=== PATIENT | female | born 1940 | race Caucasian/White ===

== ENCOUNTER 2018-10-06 08:25 | Inpatient (IN) ==
--- NOTE | 2018-10-06 08:29 | PROVIDER DOCUMENTATION ---
HPI-Neurological Disorder - General Chief Complaint: Altered Mental Status Stated Complaint: AMS Time Seen by Provider: 10/06/18 08:29 Source: patient, EMS Allergies/Adverse Reactions: Patient Allergies Allergy/AdvReac Type Severity Reaction Status Date / Time Sulfa (Sulfonamide Allergy Intermediate NAUSEA Verified 10/06/18 09:00 Antibiotics) [Sulfa(Sulfonamide Antibiotics)] Home Medications: Home Medication List Medication Instructions Recorded Confirmed Last Taken Type Folic Acid 1 mg PO DAILY 11/10/14 07/25/16 01/01/16 History Isosorbide Mononitrate 60 mg PO DAILY 11/10/14 07/25/16 01/01/16 History Allopurinol [Zyloprim] 300 mg PO DAILY 03/10/15 07/25/16 01/01/16 History Donepezil [Aricept] 5 mg PO HS #0 tablet 03/14/15 07/25/16 12/31/15 Rx Duloxetine [Cymbalta] 1 cap PO DAILY 01/01/16 07/25/16 01/01/16 History Metolazone 5 mg PO DIRECTED 01/01/16 07/25/16 12/31/15 History Potassium Chloride 10 meq PO 4XDAY 01/01/16 07/25/16 01/01/16 History SIMVAstatin [Zocor] 40 mg PO QHS 01/01/16 07/25/16 12/31/15 History Amlodipine [Norvasc] 5 mg PO BID #60 tablet 07/04/16 07/25/16 Unknown Rx Carbidopa/Levodopa [Sinemet 25/250] 1 each PO BID #60 tablet 07/04/16 07/25/16 Unknown Rx LISINOpril [Prinivil] 10 mg PO BID #60 tablet 07/04/16 07/25/16 Unknown Rx Labetalol [Trandate] 200 mg PO BID #60 tablet 07/04/16 07/25/16 Unknown Rx Omeprazole [Prilosec] 20 mg PO DAILY@0700 #30 capsule 07/04/16 07/25/16 Unknown Rx Amlodipine [Norvasc] 5 mg PO BID #60 tablet 07/31/16 Unknown Rx LISINOpril [Prinivil] 10 mg PO BID #60 tablet 07/31/16 Unknown Rx Labetalol [Trandate] 200 mg PO BID #60 tablet 07/31/16 Unknown Rx Tramadol [Ultram] 50 mg PO Q12H PRN PRN #30 tablet 07/31/16 Unknown Rx - History of Present Illness-Neuro Nature of Presenting Problem: Family not at bedside at this time, patient is lethargic and oriented to name only, so history is limited and primarily from EMS. Patient has history of UTI and CHF. EMS reports family noted several days of declining mental status and cough. She is on home O2, 3l by PA regularly. Last admitted to hospital in May of last year. Headache Location: reports: other (no headache) Severity: reports: moderate, severe Onset/Duration: reports: 3 days ago Timing: reports: still present, constant, getting worse Context: reports: impaired speech, other (weakness, generalized and confusion) Character of Altered Mental Status: reports: disoriented, confused, trouble concentrating, decreased responsiveness Any recent trauma/injury?: reports: none Character of Deficits: reports: new weakness New weakness or altered sensation location:: reports: general (diffuse) Cognitive Baseline: alert but disoriented Gait Baseline: walks only with assistance Associated Symptoms: reports: short of breath, confusion, weakness Similar Symptoms Previously?: Yes (uti) Recently seen or treated by another doctor?: No Review of Systems - Adult - REVIEW OF SYSTEMS - ADULT ROS:: limited per condition Constitutional: reports: no symptoms reported Eyes: reports: no symptoms reported Ears, Nose, Mouth & Throat: reports: no symptoms reported Cardiovascular: reports: no symptoms reported Respiratory: reports: see HPI, chronic cough, cough, dyspnea on exertion, excessive sputum production Gastrointestinal: reports: no symptoms reported Genitourinary: reports: no symptoms reported Musculoskeletal: reports: no symptoms reported Integumentary: reports: no symptoms reported Neurological: reports: see HPI, other (weakness). denies: ataxia, dizziness/ vertigo, headache/migraines, loss of balance, numbness, paresthesia, tremors Psychiatric: reports: no symptoms reported Endocrine: reports: no symptoms reported Hematologic/Lymphatic: reports: no symptoms reported Allergic/Immunologic: reports: no symptoms reported All Other Systems: Reviewed and Negative Past History - Adult - PAST MEDICAL HISTORY-ADULT Review of Records: reports: Old Records Reviewed, Nursing Assessment Review, Medications Reviewed, Social history reviewed & non-contributory. Major Childhood Illnesses: reports: denies history Cardiovascular: reports: CAD, CHF, HTN, hyperlipidemia Respiratory: reports: asthma, COPD Gastrointestinal: reports: denies history Obstetrical/Gynecological: reports: denies history Genitourinary: reports: kidney disease Musculoskeletal: reports: denies history Neurological: reports: dementia Endocrine/Immune: reports: Diabetes Other Conditions: reports: denies history - PRIOR SURGERIES/PROCEDURES Surgical/Procedure History: reports: hysterectomy, hernia repair, breast ( breast biopsy) - IMMUNIZATION STATUS Flu Vaccine: UTD - FAMILY HISTORY Family History: reviewed, not pertinent - SOCIAL HISTORY Smoking: quit greater than 1 year Substance Use: none/never Alcohol Use Frequency: never Living Situation: family Physical Exam- Neurological - Physical Exam-Neuro Initial Vital Signs Reviewed: Yes (VSSAF) General Appearance: mild distress, lethargic, slow to respond Eye Exam: right eye: other (counjunctival injection and yellow discharge), bilateral eye: normal inspection, PERRL, EOMI HENMT: normocephalic/atraumatic, normal ENT inspection, other (dry mucous membranes) Head Injury: no evidence of injury Neck: non-tender, full range of motion, supple, normal inspection Respiratory: no pleuratic chest pain, no respiratory distress, decreased breath sounds, rales, wheezing, dull on percussion Cardiovascular: normal peripheral pulses, regular rate, rhythm, no edema, diastolic murmur, gallop/S3, extra beats Abdominal Exam: normal bowel sounds, soft, tenderness (mild diffuse) Lymphatic: no adenopathy Extremity: normal range of motion, non-tender, pedal edema (4+) drinking water technician Exam: PERRL, abnormal speech (answers in one word) Coordination/Gait: abnormal gait Motor/Sensory: no motor deficit, no sensory deficit, no pronator drift, weak motor strength RUE, weak motor strength LUE, weak motor strength RLE, weak motor strength LLE Neurologic: drinking water technician II-XII nml as tested, no motor/sensory deficits, motor weakness (diffuse) Integumentary: warm/dry, abrasion(s) (upper chest), other (old bruise right upper outer arm, venous statsis changes bilateral lower legs) Psych/Mental Status: other (oriented to name only) - Glascow Coma Scale Best Eye Response: (3) open to voice Best Verbal Response: (3) inappropriate words Best Motor Response: (4) withdraws to pain Total Glascow Score: 10 Progress - PLAN OF CARE/RESULTS Progress/Plan/Lab Results: Vital Signs - 8 hr 10/06/18 08:30 10/06/18 08:45 Temperature 97.6 F Pulse Rate 81 81 Respiratory Rate 15 20 Blood Pressure 150/83 O2 Sat by Pulse Oximetry 97 92 L 10/06/18 08:55 Influenza Screen - Final Nasopharyngeal Laboratory Results - last 24 hr 10/06/18 10/06/18 10/06/18 08:34 08:36 08:36 WBC 20.25 H RBC 3.56 L Hgb 10.7 L Hct 35.0 L MCV 98.3 MCH 30.1 MCHC 30.6 L RDW Std Deviation 16.1 H Plt Count 282 MPV 10.7 H Immature Gran % (Auto) 2.2 H Neut % (Auto) 84.5 H Lymph % (Auto) 6.8 L Carson % (Auto) 5.4 Eos % (Auto) 0.9 Baso % (Auto) 0.2 Immature Gran # (Auto) 0.45 H Neut # (Auto) 17.09 H Lymph # (Auto) 1.38 Carson # (Auto) 1.10 H Eos # (Auto) 0.19 Baso # (Auto) 0.04 Segmented Neutrophils 80 H Band Neutrophils 8 H Lymphocytes 2 L Monocytes 6 Eosinophils 2 Metamyelocytes 2.0 PT INR PTT (Actin FS) Specimen Type ARTERIAL Sample Site R RADIAL pH 7.14 L* pCO2 50 H pO2 84 HCO3 15.7 L Base Excess -11.7 L Oxyhemoglobin 92.7 L ABG O2 Sat (Calculated) 14.2 L ABG O2 Saturation 95.9 ABG Carboxyhemoglobin 1.80 ABG Methemoglobin 1.5 Rigoberto Test YES A-a O2 Difference 82.0 Total Hemoglobin 10.8 L Lactate 0.50 Liter Flow 3.0 Blood Gas Modality CANNULA FiO2 % 32.0 Sodium 144 Potassium 4.8 Chloride 111 H Carbon Dioxide 18 L Anion Gap 15 BUN 76 H Creatinine 3.2 H Estimated GFR/1.73 m2 14 BUN/Creatinine Ratio 24 Glucose 139 H Calculated Osmolality 312 Calcium 9.9 Magnesium 2.9 H Total Bilirubin 0.31 AST 21 ALT 15 Alkaline Phosphatase 134 H Creatine Kinase 68 Troponin T Total Protein 7.1 Albumin 3.4 L Globulin 3.7 Albumin/Globulin Ratio 0.9 Plasma Lactate Urine Source Urine Color Urine Turbidity Urine pH Ur Specific [place] Urine Protein Ur Glucose (Stick) Ur Ketones (Stick) Urine Blood Urine Nitrite Urine Bilirubin Urobilinogen Dipstick Urine Leukocytes Urine WBC (Auto) Urine RBC (Auto) Urine Bacteria (Auto) 10/06/18 10/06/18 10/06/18 08:36 08:36 08:36 WBC RBC Hgb Hct MCV MCH MCHC RDW Std Deviation Plt Count MPV Immature Gran % (Auto) Neut % (Auto) Lymph % (Auto) Carson % (Auto) Eos % (Auto) Baso % (Auto) Immature Gran # (Auto) Neut # (Auto) Lymph # (Auto) Carson # (Auto) Eos # (Auto) Baso # (Auto) Segmented Neutrophils Band Neutrophils Lymphocytes Monocytes Eosinophils Metamyelocytes PT 15.3 INR 1.12 PTT (Actin FS) 33.2 Specimen Type Sample Site pH pCO2 pO2 HCO3 Base Excess Oxyhemoglobin ABG O2 Sat (Calculated) ABG O2 Saturation ABG Carboxyhemoglobin ABG Methemoglobin Rigoberto Test A-a O2 Difference Total Hemoglobin Lactate Liter Flow Blood Gas Modality FiO2 % Sodium Potassium Chloride Carbon Dioxide Anion Gap BUN Creatinine Estimated GFR/1.73 m2 BUN/Creatinine Ratio Glucose Calculated Osmolality Calcium Magnesium Total Bilirubin AST ALT Alkaline Phosphatase Creatine Kinase Troponin T 0.041 Total Protein Albumin Globulin Albumin/Globulin Ratio Plasma Lactate 0.6 Urine Source Urine Color Urine Turbidity Urine pH Ur Specific [place] Urine Protein Ur Glucose (Stick) Ur Ketones (Stick) Urine Blood Urine Nitrite Urine Bilirubin Urobilinogen Dipstick Urine Leukocytes Urine WBC (Auto) Urine RBC (Auto) Urine Bacteria (Auto) 10/06/18 08:40 WBC RBC Hgb Hct MCV MCH MCHC RDW Std Deviation Plt Count MPV Immature Gran % (Auto) Neut % (Auto) Lymph % (Auto) Carson % (Auto) Eos % (Auto) Baso % (Auto) Immature Gran # (Auto) Neut # (Auto) Lymph # (Auto) Carson # (Auto) Eos # (Auto) Baso # (Auto) Segmented Neutrophils Band Neutrophils Lymphocytes Monocytes Eosinophils Metamyelocytes PT INR PTT (Actin FS) Specimen Type Sample Site pH pCO2 pO2 HCO3 Base Excess Oxyhemoglobin ABG O2 Sat (Calculated) ABG O2 Saturation ABG Carboxyhemoglobin ABG Methemoglobin Rigoberto Test A-a O2 Difference Total Hemoglobin Lactate Liter Flow Blood Gas Modality FiO2 % Sodium Potassium Chloride Carbon Dioxide Anion Gap BUN Creatinine Estimated GFR/1.73 m2 BUN/Creatinine Ratio Glucose Calculated Osmolality Calcium Magnesium Total Bilirubin AST ALT Alkaline Phosphatase Creatine Kinase Troponin T Total Protein Albumin Globulin Albumin/Globulin Ratio Plasma Lactate Urine Source CATH Urine Color YELLOW Urine Turbidity CLEAR Urine pH 6.0 Ur Specific [place] 1.012 Urine Protein 300 A Ur Glucose (Stick) TRACE Ur Ketones (Stick) NEGATIVE Urine Blood TRACE A Urine Nitrite NEGATIVE Urine Bilirubin NEGATIVE Urobilinogen Dipstick NORMAL Urine Leukocytes NEGATIVE Urine WBC (Auto) <10 Urine RBC (Auto) <10 Urine Bacteria (Auto) NEGATIVE Orders Category Date Time Status Cardiac Monitoring DIRECTED Care 10/06/18 08:34 Active [place] Insertion ORDERED Care 10/06/18 08:35 Active IV Insertion ORDERED Care 10/06/18 08:34 Completed Notify Physician As Ordered Care 10/06/18 08:34 Active CHEST-1 VIEW [RAD] Stat Exams 10/06/18 08:34 Completed ABG [RESP] Routine Lab 10/06/18 08:34 Completed BLOOD CULTURE [BLDCUL] Stat Lab 10/06/18 09:10 Received CBC WITH DIFF [HEME] Stat Lab 10/06/18 08:36 Completed CK PROFILE [SP CHEM] Stat Lab 10/06/18 08:36 Completed COMPREHENSIVE METABOLIC PANEL [CHEM] Stat Lab 10/06/18 08:36 Completed INFLUENZA SCREEN A/B Stat Lab 10/06/18 08:55 Completed LACTATE, PLASMA [CHEM] Lab 10/06/18 11:45 Uncollected LACTATE, PLASMA [CHEM] Lab 10/06/18 14:45 Uncollected LACTATE, PLASMA [CHEM] Q3H Lab 10/06/18 08:36 Completed MAGNESIUM [CHEM] Stat Lab 10/06/18 08:36 Completed PRO B-NATRIURETIC PEPTIDE Stat Lab 10/06/18 08:36 Received PROTIME WITH INR [COAG] Stat Lab 10/06/18 08:36 Completed PTT [COAG] Stat Lab 10/06/18 08:36 Completed TROPONIN T Stat Lab 10/06/18 08:36 Completed URINALYSIS W/POSS RFLX CULT [URINALYSIS] Stat Lab 10/06/18 08:40 Results 0.9% Sodium Chloride Inj [Ns] 1,000 ml Med 10/06/18 08:33 Discontinued IV 999 mls/hr Albuterol 2.5MG/Ipratrop 0.5MG [Duoneb (A & A)] Med 10/06/18 08:35 Discontinued 3 ml INH NOW ONE Azithromycin 500 mg/Ns [Zithromax 500 mg/Ns] Med 10/06/18 09:36 Active 500 mg in 250 ml IV NOW CefTRIAXONE [Rocephin] 2 gm Med 10/06/18 08:33 Discontinued 0.9% Sodium Chloride Inj [Ns] 50 ml IV NOW Furosemide [Lasix] Med 10/06/18 08:35 Discontinued 20 mg IV NOW ONE Furosemide [Lasix] Med 10/06/18 09:28 Discontinued 60 mg IV NOW ONE Sodium Bicarbonate 8.4% Med 10/06/18 09:28 Discontinued 50 meq IV NOW ONE Aerosol Treatments Routine Oth 10/06/18 08:36 Completed Aerosol Treatments Stat Oth 10/06/18 08:36 Completed Oxygen Device Stat Ot 10/06/18 08:34 Completed Result Diagrams: 10/06/18 08:36 10/06/18 08:36 - REASSESSMENT Reassessment #1 Time Reassessed: 09:37 Status: improving (Given duoneb treatments, does not meet criteria for sepsis at this time. Givne 1 L of IVF and 80mg lasix. Given rocephin/zithromax for likely CAP) - XRAY 1 XRAY Study: Chest Impression: Abnormal, See EMR Report (EXAM: CHEST-1 VIEW HISTORY: chf, cough TECHNIQUE: Portable chest COMPARISON: 07/25/2016 FINDINGS: Poor inspiratory effort. There is pulmonary edema. The heart is borderline mildly prominent. Questionable trace pleural fluid. IMPRESSION: Pulmonary edema Electronically signed by Aly Pandey 10/06/2018 9:12 AM 10/06/18911 Interpreting Physician: Aly Pandey MD Dictated Date/Time: 10/06/18911 cc: Immanuel Leahy MD; Chiquis Rosales MD) XRAY Interpretation: I believe there is a RLL infiltrate - CONSULTS/PCP/HOSPITALIST Notification #1 *Consult/PCP/Hospitalist*: STARLA Macedo Time Discussed: 09:40 (admit to [facility]) Consult Disposition: Will see in ED Departure - Departure Date of Disposition Decision: 10/06/18 Time of Disposition Decision: 09:40 DIAGNOSIS: Acute kidney injury superimposed on chronic kidney disease, Metabolic acidosis with respiratory acidosis Altered mental status, unspecified Qualifiers: Altered mental status type: somnolence Qualified Code(s): R40.0 - Somnolence Pneumonia Qualifiers: Pneumonia type: due to unspecified organism Laterality: right Lung location: lower lobe of lung Qualified Code(s): J18.1 - Lobar pneumonia, unspecified organism Acute exacerbation of CHF (congestive heart failure) Qualifiers: Heart failure type: combined systolic and diastolic Qualified Code(s): I50.43 - Acute on chronic combined systolic (congestive) and diastolic (congestive) heart failure Disposition: ADMITTED INPATIENT 09 Certified Medical Emergency: Emergent Condition: Fair Referrals and Follow-Ups: Chiquis Rosales MD [Primary Care Provider] - - Critical Care Note This patient required my direct & personal management of CC.: Yes Total Time (mins): 45 Critical Care Statement: This patient required my direct personal management to treat or rule out processes, the absence of which, could potentiallly result in sudden, clinically significant life or limb threatening deterioration. Attestation - Physician/ LO Attestation Patient care was provided by Advanced Practice Provider:: No The physician spent face to face time with patient:: Yes Advanced Practice Provider documentation review:: Supervising physician onsite and consulted in the evaluation and care of this patient. The physician did have a face to face encounter with the patient. - NIH Stroke Scale NIH Type: Initial Evaluation Level of Consciousness: 2-Stuporous, requires repeat stimulation to attend LOC Questions (ask month and age): 2-Both Incorrect LOC Commands (ask to open & close eyes;make a fist, let go): 2-Both Incorrect Best Gaze (horizontal eye movement): 0-Normal Visual (use finger movement, counting or visual threat): 0-No Visual Loss Facial Palsy (show teeth or raise eyebrows & close eyes tght: 0-Symmetrical Movement Motor Function-left arm: 2-Some Effort Against Hudgins Motor Function-right arm: 2-Some Effort Against Hudgins Motor Function-left le-Some Effort Against H[place]gins Motor Function-right le-Some Effort Against Hudgins Limb Ataxia([id number]-[id number], or heel to mcneill): 0-Untestable (too weak) Sensory(pin prick to face,arms,trunk,legs-compare side/side): 0-No Ataxia Best Language(name item/read sentence.Ex-Down to Earth): 0-No Aphasia Dysarthria(Pt read words or say words Ex.Mama,Tip-Top,Thanks: 2-Near Unintelligible Extinction and Inattention: 0-Normal NIH Total Score: 16 Modified [place] Score Criteria: 5-severe disability Stroke tPA Guidelines - Inclusion Criteria for IV tPA 18 years old or older: Yes Ischemic stroke with measurable deficit: No Onset <3 hours ago *OR* 3-4.5 hours ago: No
[2018-10-06] MEDS ORDERED: NS 1,000 ML IV ONE (08:33)
[2018-10-06] MEDS ORDERED: ROCEPHIN 2 GM in NS 50 ML IV ONE (08:33)
[2018-10-06] MEDS ORDERED: LASIX IV ONE ×2 (08:35→09:28)
[2018-10-06] MEDS ORDERED: DUONEB (A & A) INH ONE (08:35)
[2018-10-06 08:54] LABS: ALLEN TEST YES; BE -11.7 mmoll (-3.0-3.0); BLOOD TYPE ARTERIAL; HCO3-(ACT) 15.7 mmoll (20.0-26.0); METHB 1.5 % (0.0-1.5); O2(CT) 14.2 mL/dL (15.0-23.0); O2HB 92.7 % (95.0-99.0); PCO2(98.6) 50 mmHg (35-45); PO2(98.6) 84 mmHg (60-100); SAMPLE BLOOD; SAO2 95.9 % (95.0-100.0); THB 10.8 g/dL (11.5-17.4)
[2018-10-06 08:56] LABS: MODALITY CANNULA
[2018-10-06 08:58] LABS: pH(98.6) 7.14 (7.35-7.45)
[2018-10-06 09:02] LABS: URINE SOURCE CATH
[2018-10-06 09:05] LABS: BILIRUBIN URINE NEGATIVE (NEGATIVE); BLOOD URINE TRACE (NEGATIVE); COLOR YELLOW; GLUCOSE URINE TRACE mg/dL (NEGATIVE); KETONE URINE NEGATIVE (NEGATIVE); LEUKOCYTES URINE NEGATIVE (NEGATIVE); NITRITE URINE NEGATIVE (NEGATIVE); PROTEIN URINE 300 mg/dL (NEGATIVE); SP GRAVITY URINE 1.012; TURBIDITY URINE CLEAR (CLEAR); UROBILINOGEN URINE NORMAL (NORMAL)
[2018-10-06 09:06] LABS: URINE BACTERIA NEGATIVE /HPF; URINE RBC <10 /HPF (<10); URINE WBC <10 /HPF (<10)
[2018-10-06 09:14] LABS: INR 1.12; PROTIME 15.3 Seconds (11.0-16.0); PTT 33.2 Seconds (22.3-41.8)
--- NOTE | 2018-10-06 09:15 | Diag Imaging Result Doc PS360 ---
EXAM: CHEST-1 VIEW HISTORY: chf, cough TECHNIQUE: Portable chest COMPARISON: 07/25/2016 FINDINGS: Poor inspiratory effort. There is pulmonary edema. The heart is borderline mildly prominent. Questionable trace pleural fluid. IMPRESSION: Pulmonary edema Electronically signed by Aly Pandey 10/06/2018 9:12 AM
[2018-10-06 09:24] LABS: ALB/GLOB RATIO 0.9; ALBUMIN 3.4 g/dL (3.5-5.0); CALCIUM 9.9 mg/dL (8.8-10.2); CREATININE 3.2 mg/dL (0.5-0.9); MAGNESIUM 2.9 mg/dL (1.5-2.7); POTASSIUM 4.8 mmol/L (3.5-5.1); TOTAL BILIRUBIN 0.31 mg/dL (0.20-1.00); TOTAL PROTEIN 7.1 g/dL (6.3-8.3)
[2018-10-06] MEDS ORDERED: SODIUM BICARBONATE 8.4% IV ONE (09:28)
[2018-10-06 09:29] LABS: BASO# 0.04 X1000 (0.0-0.2); BASO% 0.2 % (0.0-0.8); EOS# 0.19 X1000 (0.0-0.7); EOS% 0.9 % (0.0-10.0); HEMOGLOBIN 10.7 g/dL (12.0-16.0); IMM GRAN# 0.45 X1000 (0.0-0.04); IMM GRAN% 2.2 % (0.0-0.5); LYMPH# 1.38 X1000 (1.2-3.4); LYMPH% 6.8 % (20.5-51.1); MCH 30.1 PG (27-31); MCHC 30.6 g/dL (33-37); MCV 98.3 FL (81-99); MONO% 5.4 % (1.7-9.3); MPV 10.7 FL (7.4-10.4); NEUT# 17.09 X1000 (1.4-6.5); NEUT% 84.5 % (42.2-75.2); PLT 282 X1000 (130-400); RBC 3.56 XMIL (4.2-5.4); RDW 16.1 % (11.5-14.5); WBC 20.25 X1000 (4.8-10.8)
[2018-10-06 09:31] LABS: BANDS 8 % (0-1); EOS 2 % (1-10); LYMPHS 2 % (21-51); MONO 6 % (1-9); SEGS 80 % (42-75)
[2018-10-06] MEDS ORDERED: ZITHROMAX 500 MG/NS 500 MG/250 ML IVPB IV ONE (09:36)
[2018-10-06 09:55] LABS: UR EPITHELIAL CELLS <10 /HPF (<10)
--- NOTE | 2018-10-06 10:03 | ED EKG INTERP ---
EKG Interpretation - EKG Time of EKG reading by physician:: 08:35 EKG Read and Signed by:: Immanuel Leahy EKG Interpretation (*Must complete 3 of following elements*): Abnormal Rate: 76 Rhythm: afib [place]: normal QRS: RBB ST Wave: non-specific ST changes Attestation - Physician/ LO Attestation Patient care was provided by Advanced Practice Provider:: No The physician spent face to face time with patient:: Yes Advanced Practice Provider documentation review:: Supervising physician onsite and consulted in the evaluation and care of this patient. The physician did have a face to face encounter with the patient.
[2018-10-06] MEDS ORDERED: DUONEB (A & A) INH PRN (10:53)
--- NOTE | 2018-10-06 11:21 | EKG Report ---
Test Performed on : 10/06/2018 08:33:23 AM Test Reason : ED. No order in [place] Blood Pressure : / mmHG Vent. Rate : 076 BPM Atrial Rate : 068 BPM P-R Int : 000 ms QRS Dur : 134 ms QT Int : 420 ms P-R-T Axes : 000 070 -34 degrees QTc Int : 472 ms Atrial fibrillation. with premature ventricular or aberrantly conducted complexes. Right bundle branch block Abnormal ECG When compared with ECG of 30-JUL-2016 19:15, Right bundle branch block is now present Borderline criteria for Inferior infarct are no longer present Unconfirmed Result
[2018-10-06 11:26] LABS: UR CREAT RANDOM 68.6 mg/dL (11-20)
[2018-10-06 11:28] LABS: UR AMPHETAMINES QUAL NONE DETECTED (NONE DETECT); UR BARBITUATES QUAL NONE DETECTED (NONE DETECT); UR BENZODIAZEPIN QUAL NONE DETECTED (NONE DETECT); UR CANNABINOIDS QUAL NONE DETECTED (NONE DETECT); UR COCAINE QUAL NONE DETECTED (NONE DETECT); UR METHADONE QUAL NONE DETECTED (NONE DETECT); UR OPIATES QUAL PRESUMPTIVE POSITIVE (NONE DETECT); UR OXYCODONE QUAL NONE DETECTED (NONE DETECT); UR PCP QUAL NONE DETECTED (NONE DETECT)
[2018-10-06] MEDS: ZOSYN 2.25 GM in NS 50 ML IV SCH ×3 (11:35→22:28)
[2018-10-06] MEDS: PROTONIX IV SCH (11:35)
[2018-10-06] MEDS: DUONEB (A & A) INH SCH ×4 (11:45→23:02)
[2018-10-06] MEDS ORDERED: APRESOLINE IV PRN (11:57)
[2018-10-06 12:06] LABS: HEMOGLOBIN A1C 5.7 % (4.8-6.0)
[2018-10-06 12:09] LABS: ACETAMINOPHEN 1.7 ug/mL (10-30); SALICYLATES < 3.00 mg/dL (3-10)
[2018-10-06 12:16] LABS: FREE T4 0.96 ng/dL (0.93-1.70); TSH 1.45 uIUmL (0.27-4.20)
--- NOTE | 2018-10-06 12:17 | HISTORY AND PHYSICAL ---
PRIMARY CARE PHYSICIAN: Dr. Chiquis Rosales CHIEF COMPLAINT: Altered mental status. HISTORY OF PRESENT ILLNESS: Ms. Lo is a 78-year-old female with multiple medical problems, who has been seen by our service multiple times over the years. She has a history of CKD 4, diabetes mellitus, chronic atrial fibrillation, who presents today from home with altered mental status. There is no one at the bedside, and the patient is essentially somnolent and unable to really give us any type of history. On exam, Ms. Lo is indeed encephalopathic; however, she does open her eyes to verbal stimulus but is disoriented. She does state that she came to the ER because she was on the floor for too long; however, the timing and duration of this is unknown. Workup in the ER revealed a white count of 20.25 with anemia. An ABG done revealed a mixed metabolic and respiratory acidosis with pH of 7.14. Chemistry shows worsening renal failure, acidosis and a ProBNP of 11,150. Chest x-ray did reveal cardiomegaly. She was given 80 mg of Lasix, an amp of sodium bicarb and antibiotics by the ER. Given the above , she will need admission for further treatment and evaluation. PAST MEDICAL HISTORY: 1. Admissions in the past for altered mental status, ultimately felt to be toxic encephalopathy, possibly secondary to medications. 2. CKD 4. 3. Chronic atrial fibrillation. 4. Hypertension. 5. Diabetes mellitus type 2 requiring insulin. 6. Hyperlipidemia. 7. Chronic pain, on narcotic therapy. Please note that review of her medications at the bedside show a bottle of Han[place] that filled on 09/27/2018, 90 pills were dispensed, and there are only 7 in the bottle. 8. Hypertension. 9. History of myelodysplastic syndrome. 10.Morbid obesity. 11.Chronic anemia. 12.COPD. PAST SURGICAL HISTORY: Hysterectomy, hernia repair and breast surgery. FAMILY HISTORY: Noncontributory. SOCIAL HISTORY: Per chart review, there is no report of tobacco or alcohol use. There is question of opiate abuse. She is but currently no family at the bedside. ALLERGIES: Sulfa. HOME MEDICATIONS: Not reconciled at this time, currently pending. REVIEW OF SYSTEMS: Unable to obtain. PHYSICAL EXAMINATION: VITAL SIGNS: Blood pressure is 139/90, heart rate 83, respiratory rate 26, O2 saturation is 100% on 3 L nasal cannula. Temperature is 97.6. GENERAL: This is a disheveled, chronically ill appearing, morbidly obese 78-year -old female lying in hospital bed, lethargic, bordering on obtunded. NEUROLOGICAL: She opens her eyes to verbal stimulus. She is able to state that she is in [facility] and her name, but otherwise she is disoriented. She follows commands without any overt focal deficits. HEENT: Pupils are pinpoint bilaterally. Oral mucosa is slightly dry. NECK: Trachea is midline. There is no JVD. CHEST: Coarse bilaterally. CARDIOVASCULAR: Irregular rate and rhythm. S1 and S2 noted. GASTROINTESTINAL: Soft, nondistended. Bowel sounds are hypoactive. EXTREMITIES: Trace edema. Chronic venostasis changes noted. Pulses are diminished, 1+ bilaterally. DIAGNOSTIC DATA: Chest x-ray shows poor inspiration with cardiomegaly and pulmonary edema. EKG shows atrial fibrillation, rate controlled, right bundle branch block. WBC is 20.25, hemoglobin 10.7, hematocrit 35, platelet count is 282. INR is 1.12. ABG on nasal cannula showed pH of 7.14, CO2 is 50, O2 is 84, bicarbonate 15.7. Sodium is 144, potassium 4.8, chloride 111, CO2 is 18, anion gap 15, BUN is 76, creatinine 3.2, glucose 139, calcium 9.9, magnesium 2.1. AST is 21, ALT is 50, total bilirubin is 0.31, alkaline phosphatase 134. CK is 68. Troponin is 0.041. ProBNP is 11,150. Protein is 7.1, albumin 3.4. UA is negative for UTI. Toxicology is positive for opiates. ASSESSMENT AND PLAN: 1. Toxic/metabolic encephalopathy. Likely similar to previous admissions for the same. In light of her possible opiate abuse/overdose, this could certainly represent toxic encephalopathy secondary to Hanover usage. We are going to check a head CT, and we are also going to put her on BiPAP for respiratory acidosis. We will also check thyroid function and continue treatment for possible pneumonia. 2. Acute kidney injury on chronic kidney disease. She is not hypotensive or overtly volume depleted on physical exam. More than likely, this represents slight worsening of her chronic disease process. She was given 80 mg of Lasix intravenously in the ER, so we will need to watch her renal status closely. She has a triple acid base disturbance: respiratory, anion and non-anion gap acidosis. She was given an amp of bicarb in the ER and we are putting her on bipap for resp acidosis. We will recheck an abg in a few hours and consult Dr. Woods as well. Urine lytes also pending. 3. Respiratory Failure: Likely due to a combination of respiratory depression from opiate usage and/or pulmonary edema/pna. Will continue with bipap, add broad spec abx and breathing treatments. She has been given a fairly large dose of lasix in the ER as well. Will order a thorax CT, trend cardiac enzymes, order an echo, follow blood gases,and consult pulmonary. 4. Diabetes mellitus. We will check hemoglobin A1c, add pattern sugars and sliding scale insulin. 5. Chronic Afib: Rate controlled, awaiting medication reconciliation to see if she is on anticoagulation. She meets criteria for AC but is likely a poor candidate as there is a question of dementia and ability to adhere to therapy. DVT prophylaxis with SCDs for now, she will need anticoagulant once head CT is deemed negative. Further recommendations to follow. Dictated by STARLA Danielle for Jacinto Maguire MD Patient seen and examined by me face to face, all the laboratory, vitals signs and images were reviewed, presented to the emergency department with mental status changes, at the moment of my evaluation nobody was at the bedside, she is lethargic, has some respiratory distress, I see in the medications list from home that she takes Hanover schedule three times a day, I will stop that since I think is to much, and this is basically the cause of this mental status changes, she has bilateral rhonchi, decreased breath sounds on my exam, I agree with the [facility] DRILLER's assessment and plan, Jacinto Aquino MD. cc: STARLA Danielle MD [facility]ITAL[facility]ala[facility]
[2018-10-06 12:24] LABS: ACETONE SERUM NEGATIVE (NEGATIVE)
--- NOTE | 2018-10-06 13:31 | Diag Imaging Result Doc PS360 ---
CT HEAD W/O CONTRAST - 10/06/2018 INDICATION: ams COMPARISON: 07/25/2016 FINDINGS: The ventricles and sulci are normal in size and contour. No intracranial mass or hemorrhage. The skull is intact. The sinuses mastoids and middle ears are clear. IMPRESSION: Negative exam. This exam was performed using automated exposure control, adjustment of mA or kV according to patient size, and/or use of iterative reconstruction technique Electronically signed by Jean Moreland 10/06/2018 1:28 PM
--- NOTE | 2018-10-06 13:34 | Diag Imaging Result Doc PS360 ---
CT THORAX W/O CONTRAST - 10/06/2018 INDICATION: dyspnea COMPARISON: Chest x-ray from earlier today FINDINGS: There is significant calcified vascular disease of the aortic arch and great vessels. This involves the coronary arteries as well, and the mitral valve annulus. Heart size is borderline enlarged. No pericardial effusion. There is a small right and trace left pleural effusion. There is bilateral dependent consolidation of the lungs mainly in the lower lobes, left greater than right. Lung volumes are severely low. There is a left adrenal nodule measuring 1.5 cm. There is a left renal cyst that appears benign. These are both stable from the abdomen pelvis CT of 06/20/2013 and considered benign. There are moderate degenerative changes of the spine. No acute or suspicious bony lesion. IMPRESSION: 1. Severely low lung volumes. 2. Cardiomegaly. Vascular disease. 3. Bilateral lower lobe consolidation left greater than right. 4. Small right and trace left pleural effusions. This exam was performed using automated exposure control, adjustment of mA or kV according to patient size, and/or use of iterative reconstruction technique Electronically signed by Jean Moreland 10/06/2018 1:32 PM
--- NOTE | 2018-10-06 15:42 | NEPHROLOGY CONSULTATION ---
DATE: 10/06/2018 REASON FOR ADMISSION: Altered mental status. REASON FOR CONSULTATION: Acute kidney injury in the context of chronic kidney disease stage 3B-4. CONSULTING PHYSICIAN: Jacinto Maguire MD, STARLA Ballesteros, HISTORY OF PRESENT ILLNESS: Ms. Lo is a 78-year-old white female who is known to our outpatient services for chronic kidney disease stage 4. The patient's baseline creatinine, last seen in our office was 2.43 on 07/16/2018. At that time, she was unable to collect a 24-hour urine due to chronic incontinence. She has a history of acidosis and a chronic anemia. Subsequently, she has chronic atrial fibrillation, who had presented with altered mental status and increased weakness for 24 hours. Her said he tried to get her up yesterday, and she was able to stand and transferred from the bedside, but today she was too somnolent and he could not get her out of bed. She was encephalopathic in the emergency room. She opened her eyes to verbal stimuli, though she was disoriented and nonverbal. Workup in the ER indicated a white count of 20.25. She was anemic. ABGs revealed mixed metabolic and respiratory acidosis with a pH of 7.14, CO2 of 18. She has a mild anion gap acidosis of 15. Her acetone is negative. The patient was subsequently given 80 mg of Lasix and an amp of sodium bicarbonate, started on Rocephin in the emergency room, was subsequently transferred to the floor for further monitoring and evaluation. She is unable to report any review of systems, though her states that she has had a decreased appetite. She was able to drink some. No nausea or vomiting, but just not wanting to the eat. No recent fever or chills. No chest pain. No complaints of increased work of breathing. Chronic lower extremity swelling. PAST MEDICAL HISTORY: Recent admissions for altered mental status with toxic encephalopathy secondary to possible medications, chronic kidney disease stage 4 with baseline creatinine noted in our office of 2.43 in June 2018, chronic atrial fibrillation, hypertension, diabetes mellitus type 2 requiring insulin dependence, hyperlipidemia, hypertension, history of myelodysplastic syndrome, morbid obesity, chronic anemia, COPD, chronic pain with narcotic therapy. PAST SURGICAL HISTORY: Hysterectomy, hernia repair, and breast surgery. FAMILY HISTORY: Noncontributory to acute kidney injury or end-stage. SOCIAL HISTORY: She is . She lives with her spouse. No report of tobacco or alcohol use. Positive for [place]. ALLERGIES: Listed as sulfa. HOME MEDICATIONS: Have yet to be reconciled. Previous medications are folic acid, isosorbide mononitrate, Zyloprim, Cymbalta, Zocor, potassium chloride, [place], Apresoline, Namenda, Reglan, Zantac, stool softener, Humalog Quick Pen, furosemide, Inderal, Levemir Flex Touch, Norvasc, Aricept, Prinivil and Prilosec. REVIEW OF SYSTEMS: The review of systems x10 is best obtained per at the bedside and per review of chart. VITAL SIGNS: Most recent vital signs, temperature 97 degrees, blood pressure 162/63, heart rate 78, respirations 14. She has had 0 recorded input; she has had 1050 output to Hamilton catheter after 80 mg of Lasix this a.m. LABORATORY DATA: Sodium 144, potassium 4.8, chloride 111, CO2 of 18, BUN 76, creatinine 3.2, glucose 139. Her anion gap is 15, her calcium is 9.9, magnesium 2.9, albumin 3.4. White count 20.25, hemoglobin 10.7, hematocrit 35, platelet count 282,000. ABGs, pH 7.14, CO2 of 50, PO2 of 84, bicarbonate 15.7, lactate of 0.5 on 3 liters. Acetone was negative. She has an elevated BNP; this was 11,150. The patient had a head CT upon admission indicating negative exam for acute disease. Chest CT on admission shows severe low lung volume, cardiomegaly, vascular disease; bilateral lower lobe consolidation, left greater than right; small right and trace left pleural effusions. Chest x-ray on admission indicates pulmonary edema. PHYSICAL EXAMINATION: General: This is a 78-year-old white female, resting quietly in bed. She is arousable, opens her eyes to verbal stimuli, though she is nonverbal. HEENT : Normocephalic, atraumatic. Conjunctivae are pale pink. She has JOANNE. Mucous membranes are dry. Neck: Supple. Trachea midline. Unable to determine JVD secondary to the patient's body habitus. Cardiovascular: Irregular irregular rate and rhythm. S1 and S2 are noted. Unable to detect murmur or gallop. Lungs: Have coarse breath sounds bilaterally. She is on room air. Poor inspiratory effort. Abdomen: Large, obese, nontender. Positive bowel sounds present. Genitourinary: Not inspected. The patient has a Hamilton catheter that is currently in place. Extremities: She has trace bilateral edema. Pulses are palpable. She has dry scaliness noted to her bilateral lower extremities. Her left leg is slightly larger than her right. Neurological: As above. ASSESSMENT AND PLAN: 1. Acute kidney injury on chronic kidney disease stage 4. Patient's baseline creatinine is 2.43. Her BUN is 76 with a creatinine of 3.2 today. She did have urine electrolytes indicating a FENa score of 0.52%. Secondary to her pulmonary edema on her chest x-ray, she has received Lasix 80 mg this morning. We will hold on intravenous fluid resuscitation and evaluate her labs in the morning. 2. Toxic metabolic encephalopathy. This may be related to her elevated creatinine level or possibly secondary to her [place] usage. 3. Acid-base balance. The patient has respiratory anion gap, non-anion gap acidosis with metabolic acidosis present. She has received 1 amp of sodium bicarbonate, negative acetone. 4. Respiratory failure. This may be complicated secondary to opiate usage and respiratory depression. She remains currently on room air, though they are putting oxygen on her. She has a positive BNP. She has received Lasix as indicated. 5. Chronic atrial fibrillation. The patient is on anticoagulation. 6. Deep vein thrombosis prophylaxis and sequential compression devices per primary care. I would like to thank you for allowing us to follow with this patient. Dictated by STARLA Agee for Jack Woods MD Face to face encounter, data reviewed, discussed with Abbi Comer on 10/06/18. I agree with the above assessment and plan of care. cc: STARLA Agee MD [facility]
[2018-10-06] MEDS: LEVAQUIN 750 MG/D5W 750 MG/150 ML IVPB IV SCH (16:00)
[2018-10-06] MEDS: HUMULIN R SUBQ SCH ×2 (16:00→21:17)
[2018-10-06 17:10] LABS: ALLEN TEST YES; BE -8.9 mmoll (-3.0-3.0); BLOOD TYPE ARTERIAL; HCO3-(ACT) 17.8 mmoll (20.0-26.0); METHB 1.4 % (0.0-1.5); O2(CT) 16.9 mL/dL (15.0-23.0); O2HB 91.8 % (95.0-99.0); PCO2(98.6) 44 mmHg (35-45); PO2(98.6) 71 mmHg (60-100); SAMPLE BLOOD; SAO2 94.4 % (95.0-100.0); THB 13.1 g/dL (11.5-17.4); pH(98.6) 7.23 (7.35-7.45)
[2018-10-06 17:12] LABS: MODALITY CANNULA
--- NOTE | 2018-10-06 17:21 | HISTORY AND PHYSICAL ---
HISTORY AND PHYSICAL ADDENDUM: Patient seen and examined by me face to face. All the laboratory images and vital signs were reviewed. This patient does have multiple medical problems. She has been admitted before due to mental status changes. Her is at the bedside at this moment. As per the , she had a cold last week around that made her weak, and she is getting weaker to the point that she cannot stand up from bed and she has been confused. I am not quite sure if she has been taking more pain medication than usual. She has been on [place] a few times per day. We did an x- ray that showed pulmonary edema and then we did also a CT scan that showed cardiomegaly, with vascular disease, bilateral lower lobe consolidation, and the left side is greater than the right side and some pleural effusion. Upon admission, she received 80 mg of Lasix in the emergency department. I placed a consult for Pulmonary Department and Nephrology Department which already evaluated the patient. I put her on broad-spectrum antibiotics with Zosyn and I will add levofloxacin to her medications due to her lower lobe consolidations/pneumonia. This is likely related to aspiration pneumonia due to mental status changes. She does have an acute kidney injury on chronic kidney disease. Like I mentioned before, nephrology Department on board. Also, this patient has chronic atrial fibrillation. Her rate is controlled. I will continue with anticoagulation. I discussed the case with the patient and the which is at the bedside. I told them that this patient is quite sick and we will see how she responds to treatment in the next 24 hours. We also discussed her DNR status and she has decided to be full code. I will start this patient on a diet but I will give her some ice chips first to see if she tolerates. On my physical exam, she does have bilateral lung crackles. She does have an umbilical hernia, which is not painful and she is responding to my questions. She is able to recognize family members at the bedside. She is oriented, but sleepy. I agree with the nurse practitioner's assessment and plan. cc: Jacinto Maguire MD
[2018-10-06] MEDS ORDERED: NORCO-5 PO PRN (18:09)
[2018-10-06] MEDS: ULTRAM PO PRN ×2 (18:16→23:32)
--- NOTE | 2018-10-06 18:19 | ECHO REPORT ---
ORDER DATE: 10/06/2018 INDICATION: A 78-year-old female with pulmonary edema, coronary heart disease, CHF, and hypertension. M-MODE MEASUREMENTS: Left ventricle end diastole: 4.5. Left ventricle end systole: 2.9. Posterior wall: 1.0. Interventricular septum: 1.3. Left atrium: 4.7. Aortic root: 2.3. SUMMARY OF 2-DIMENSIONAL IMAGIN. Left ventricular function appears to be preserved. Ejection fraction is estimated at 60% to 65%. Mild degree of concentric LVH. The left atrium is significantly enlarged. The patient is in atrial fibrillation. 2. The mitral annulus is densely calcified. Color flow mapping of the mitral valve indicates a mild degree of regurgitation. 3. The aortic valve shows sclerosis of the cusp. There is no evidence of aortic regurgitation. Maximum gradient across the outflow tract of left ventricle is 32 mmHg. Mean gradient is 15 mmHg. That may suggest a mild degree of aortic stenosis. 4. The pulmonic valve looks grossly normal. Color flow mapping indicates a mild degree of regurgitation. 5. Tricuspid valve shows moderate degree of regurgitation. 6. Pulmonary systolic pressure is estimated at 65 mmHg. There is a small left to right shunt across the fossa ovale consistent with patent foramen ovale. 7. There is no pericardial effusion, mass, and no thrombus. SUMMARY: This study shows 1. Preserved left ventricular systolic function with ejection fraction of 65%. 2. Significantly enlarged left atrium with presence of a patent foramen ovale with a tiny left to right shunt. 3. Dense calcification of the mitral annulus. 4. Sclerosis/mild stenosis of aortic valve. Maximum gradient 32 mmHg. Mean gradient 15 mmHg. 5. Moderate to significant pulmonary hypertension estimated at 65 mmHg. Clinical correlation is recommended. cc: MD Isaias Tsang CRNP
--- NOTE | 2018-10-06 18:45 | CONSULTATION ---
DATE OF CONSULTATION: 10/06/2018 REQUESTING PROVIDER: STARLA Danielle REASON FOR CONSULTATION: Respiratory failure. HISTORY OF PRESENT ILLNESS: This is a 78-year-old female with a significant medical history including COPD, congestive heart failure, coronary artery disease, gastroesophageal reflux disease, chronic kidney disease, atrial fibrillation, hypertension, diabetes, hyperlipidemia, myelodysplastic syndrome, and early dementia. She presented to the ER via EMS this morning with altered mental status. She has been admitted to the medical floor with encephalopathy, acute kidney injury on chronic kidney disease, respiratory failure, mixed metabolic and respiratory acidosis with pH of 7.14. At the time of my examination, patient is resting comfortably in bed with eyes closed. She is easy to be awakened. She is able to answer most of my questions although she has confusion at times. She is drowsy. The patient's is at bedside. He answers part of my questions. The patient has productive cough with yellow sputum for weeks. She also has dyspnea on exertion. She has no fever or chills, wheezing, nausea, or chest pain. PAST MEDICAL HISTORY: 1. COPD. 2. Congestive heart failure, diastolic. 3. Coronary artery disease. 4. Gastroesophageal reflux disease. 5. Chronic kidney disease, stage 4. 6. Chronic atrial fibrillation. 7. Hypertension. 8. Insulin-dependent diabetes mellitus type 2 with diabetic neuropathy. 9. Obesity. 10. Hyperlipidemia. 11. Myelodysplastic syndrome. 12. Osteoarthritis. 13. Early dementia. 14. Chronic pain, on narcotic therapy. 15. Gout. 16. Chronic anemia. 17. History of DVT. 18. Stasis dermatitis. PAST SURGICAL HISTORY: 1. Bladder surgery. 2. Hysterectomy. 3. Hernia repair. 4. Breast surgery. SOCIAL HISTORY: The patient is and lives with her . They have 2 small dogs as pets. She used to smoke about 1 pack per day, but not sure how long she smoked. She quit 20 years ago. She has no history of alcohol or illicit drug use. FAMILY HISTORY: Positive for cancer and heart problems. ALLERGIES: Sulfa. REVIEW OF SYSTEMS: A 10 point review of systems was conducted, and the pertinent is listed within the HPI, otherwise not contributory. PHYSICAL EXAMINATION: Vital Signs: Temperature 97.0 degrees, blood pressure 197/103, pulse 83, respiratory rate 26, oxygen saturation 99% on nasal cannula at 3. General: Chronically ill- appearing, morbidly obese, sleeping quietly in bed, no acute distress noted. She is easy to be woken up. She is still drowsy. Patient's is at the bedside. HEENT: Atraumatic. Trachea midline. Mucosa pink and slightly dry. Respiratory: Lung expansion is equal bilaterally. Diminished breathing sounds with mild inspiratory crackles noted. Cardiovascular: Regular rate and rhythm without murmur. Gastrointestinal: Bowel sounds normoactive in all 4 quadrants. Soft, nontender, nondistended. Extremities: Bilateral lower extremities dry, scaly, discolored, and slightly cold to touch. Left lower extremity edema, 1+. Right lower extremity edema, trace. Dorsalis pedis 1+ bilaterally. Neurologic: Oriented x2, but drowsy. Speech fluent. Confusion noted at times. IMAGING DATA: Chest x-ray reveals pulmonary edema with questionable chest pleural effusion. LABORATORY DATA: White blood cell 20.25, hemoglobin 10.7, hematocrit 95.0, platelet 282,000. Sodium 144, potassium 4.8, chloride 111, carbon dioxide 18, BUN 76, creatinine 3.2, glucose 149. ProBNP 11,150. ABG: A pH 7.14, pCO2 of 50, PO2 of 84, HCO3 of 15.7, base excess -11.7, and oxyhemoglobin 92.7. ASSESSMENT: This is a 78-year-old female with a significant medical history including chronic obstructive pulmonary disease (COPD), congestive heart failure, coronary artery disease, gastroesophageal reflux disease, chronic kidney disease, atrial fibrillation, hypertension, diabetes, hyperlipidemia, myelodysplastic syndrome, and early dementia. She has been admitted to the medical floor with encephalopathy, acute kidney injury on chronic kidney disease, respiratory failure with mixed metabolic and respiratory acidosis. 1. Acute hypoxemic hypokalemic respiratory failure. 2. Toxic metabolic encephalopathy. 3. Acute kidney injury on chronic kidney disease. 4. Mixed metabolic and respiratory acidosis. 5. Chronic obstructive pulmonary disease (COPD). PLAN: 1. Continue supplemental oxygen and start BiPAP. 2. Continue antibiotic and bronchodilators. 3. Follow with ABGs, chest x-ray, CBC, and CMP. 4. Follow up with blood culture and sputum culture. 5. Dr. Woods is on board. 6. Continue GI and DVT prophylaxis. Thank you for the courtesy of this consultation. Dictated by STARLA Bravo for Monster Gregorio MD cc: STARLA Bravo MD [facility]
[2018-10-06] MEDS: APRESOLINE PO SCH (21:09)
[2018-10-06] MEDS: NAMENDA PO SCH (21:09)
[2018-10-06] MEDS: COLACE PO SCH (21:09)
[2018-10-06] MEDS: ARICEPT PO SCH (21:09)
[2018-10-07] MEDS: DUONEB (A & A) INH SCH ×6 (03:31→23:14)
[2018-10-07] MEDS: ZOSYN 2.25 GM in NS 50 ML IV SCH ×4 (05:04→21:31)
[2018-10-07 05:12] LABS: ALLEN TEST YES; BE -7.4 mmoll (-3.0-3.0); BLOOD TYPE ARTERIAL; HCO3-(ACT) 19.1 mmoll (20.0-26.0); METHB 1.1 % (0.0-1.5); O2(CT) 13.7 mL/dL (15.0-23.0); O2HB 94.7 % (95.0-99.0); PCO2(98.6) 43 mmHg (35-45); PO2(98.6) 102 mmHg (60-100); SAMPLE BLOOD; SAO2 96.4 % (95.0-100.0); THB 10.2 g/dL (11.5-17.4); pH(98.6) 7.26 (7.35-7.45)
[2018-10-07 05:13] LABS: MODALITY BI PAP
[2018-10-07] MEDS: HUMULIN R SUBQ SCH ×4 (05:59→21:30)
[2018-10-07 07:44] LABS: BASO# 0.02 X1000 (0.0-0.2); BASO% 0.2 % (0.0-0.8); EOS# 0.13 X1000 (0.0-0.7); HEMATOCRIT 32.7 % (37.0-47.0); HEMOGLOBIN 10.1 g/dL (12.0-16.0); IMM GRAN# 0.19 X1000 (0.0-0.04); IMM GRAN% 1.4 % (0.0-0.5); LYMPH# 1.14 X1000 (1.2-3.4); LYMPH% 8.6 % (20.5-51.1); MCH 30.1 PG (27-31); MCHC 30.9 g/dL (33-37); MCV 97.3 FL (81-99); MONO# 0.65 X1000 (0.11-0.59); MONO% 4.9 % (1.7-9.3); MPV 10.3 FL (7.4-10.4); NEUT# 11.12 X1000 (1.4-6.5); NEUT% 83.9 % (42.2-75.2); PLT 230 X1000 (130-400); RBC 3.36 XMIL (4.2-5.4); RDW 15.5 % (11.5-14.5); WBC 13.25 X1000 (4.8-10.8)
[2018-10-07 08:02] LABS: HEMOGLOBIN A1C 5.5 % (4.8-6.0)
[2018-10-07 08:14] LABS: ALB/GLOB RATIO 0.8; ALBUMIN 2.9 g/dL (3.5-5.0); CALCIUM 9.1 mg/dL (8.8-10.2); CREATININE 2.9 mg/dL (0.5-0.9); POTASSIUM 3.7 mmol/L (3.5-5.1); TOTAL BILIRUBIN 0.27 mg/dL (0.20-1.00); TOTAL PROTEIN 6.7 g/dL (6.3-8.3)
[2018-10-07 08:33] LABS: FERRITIN 1805 ng/mL (13-150)
[2018-10-07] MEDS ORDERED: LASIX IV ONE (08:37)
[2018-10-07] MEDS: COLACE PO SCH ×2 (08:40→20:32)
[2018-10-07] MEDS: ULTRAM PO PRN ×3 (08:40→20:32)
[2018-10-07] MEDS: APRESOLINE PO SCH ×2 (08:40→20:32)
[2018-10-07] MEDS: NAMENDA PO SCH ×2 (08:40→20:33)
[2018-10-07] MEDS: NORVASC PO SCH (08:41)
[2018-10-07] MEDS: SODIUM CHLORIDE 0.9% INJ SCH (10:40)
[2018-10-07] MEDS: PROTONIX IV SCH (10:40)
--- NOTE | 2018-10-07 14:02 | NEPHROLOGY PROGRESS NOTE ---
DATE: 10/07/2018 DATE AND TIME: Date seen 10/07/2018; time seen is 727. SUBJECTIVE: Ms. Lo is resting in bed. She is awake and alert. She states that she is having some pain, just overall discomfort. OBJECTIVE: Her most recent vital signs: Temperature 98, blood pressure 155/61 , heart rate 87, respirations 16. She is on O2 at 3 L nasal cannula. She had been on 50% BiPAP during the night. She has had 300 in; 2750 out. LABORATORY DATA: Sodium 146, potassium 3.7, chloride 110, CO2 20, BUN 67, creatinine 2.9, glucose 152, anion gap is 16, calcium of 9.1, albumin of 2.9. White count 13.25, hemoglobin 10.1, hematocrit 32.7, platelet count 230. The patient has a total iron percent saturation of 30, iron of 45, TIBC 150, ferritin of 1805. B12 greater than 2000, folate greater than 40. PHYSICAL EXAMINATION: General: This is a 78-year-old white female resting quietly in bed. She has no acute distress, though she aches all over. She appears chronically ill. HEENT: Normocephalic, atraumatic. Conjunctiva is pale pink. She has JOANNE. Mucous membranes are dry. Neck: Supple. Trachea midline. No evidence of JVD. Cardiovascular: She is regular rate and rhythm. S1, S2 noted. Lungs: She has coarse breath sounds, a congested cough though her lungs are clear to the bases. She remains on O2 support. Abdomen: Large, obese, soft, nontender. Positive bowel sounds. Genitourinary: Not inspected. She has had adequate urine out documented. Extremities: Has 2+ lower extremity edema, with her left leg slightly larger than her right. Neurologic: As above. ASSESSMENT AND PLAN: 1. Acute on chronic kidney disease stage 4. Adequate urine out. No indications for further intervention. Her FENa score was low, though she is noted to have been in pulmonary edema. Continue pulmonary toilet/ BIPAP, etc. Conservative care regarding renal disease. rg 2. Toxic metabolic encephalopathy. Patient has not received any narcotics in the last 24 hours since her admission. Her neurological status has improved. 3. Electrolytes and acid-base balance and anemia. These are all acceptable. 4. Chronic atrial fibrillation, followed by Cardiology. I would like to thank you for allowing us to follow with this patient. Dictated by STARLA Agee for Jack Woods MD Face to face encounter, data reviewed, discussed with Abbi Comer on 10/07/18. I agree with the above assessment and plan of care. cc: STARLA Agee MD [facility]
[2018-10-07] MEDS: LEVAQUIN 750 MG/D5W 750 MG/150 ML IVPB IV SCH (14:24)
--- NOTE | 2018-10-07 16:07 | PROGRESS NOTE ---
DATE: 10/07/2018 SUBJECTIVE: Patient seems to be more awake today, but she is still somnolent. I do believe she has been taking too much pain medication at home. I had a conversation with the which is at the bedside about this, and he believes that probably it is too much for her. Today we talked again about her condition. She is still remarkably sick but seems to be a little bit more stable compared with yesterday. They have decided to change the resuscitation status to DNR level 1. OBJECTIVE: Vital Signs: Temperature 98 degrees, pulse 79, respiratory rate 20, blood pressure 173/74, oxygen saturation 96 on nasal cannula. HEENT: Head normocephalic, no trauma. PERRLA. Neck: Supple. No JVD. No masses. Central trachea. Chest: Decreased breath sounds globally with some crepitus at the bases. Abdomen: Soft, nontender, nondistended. No hepatosplenomegaly. Extremities: Trace edema. No clubbing. No cyanosis. Chronic venous stasis changes. Neurological: The patient is sleepy, but arousable. She is oriented times 2. She is able to recognize family members at the bedside. She is following commands. She is answering most of my questions. LABORATORY DATA: WBC 13.2, hemoglobin 10.1, hematocrit 32.7, platelets 230,000. Sodium 146, potassium 3.7, chloride 110, bicarbonate 20, BUN 67, creatinine 2.9, glucose 152, calcium 9.1. ASSESSMENT AND PLAN: 1. Encephalopathy. It looks like she has been getting the same problem on previous admissions. In light of her possible opiate abuse/overdose, probably this is related to a toxic encephalopathy secondary to Gomer treatment. I have discussed with the patient and the who is at the bedside that I do believe it is too much Gomer for this patient. She has been getting the treatment 3 times a day. At this moment, this patient is getting better. We will continue with the same management. 2. Acute on chronic kidney disease. She is not hypotensive. She received some Lasix upon admission, and today she has received Lasix as well because she has some pulmonary edema and respiratory failure. Nephrology Department on board. 3. Hypercapnic respiratory failure. This patient has bilateral lower lobe pneumonia. We will continue with antibiotics. She has been placed on Zosyn and levofloxacin. Likely this is secondary to aspiration pneumonia. 4. Aspiration pneumonia. As above. 5. Type 2 diabetes. Continue with same management. 6. Chronic atrial fibrillation, rate controlled. Continue with her medications and anticoagulation. 7. Likely diastolic heart failure. This patient has been having some pulmonary edema. At home, she is on Lasix. She has been getting Lasix during this hospitalization. Her BNP was elevated at 11,150. I will repeated tomorrow again. 8. History of chronic obstructive pulmonary disease. Not in exacerbation at this moment. 9. Chronic pain on narcotic therapy. I do believe this is the cause of her problems. I do believe she is taking too much pain medication. 10. History of myelodysplastic syndrome. Aware. 11. Resuscitation status. This patient is DNR. cc: Jacinto Maguire MD
[2018-10-07] MEDS ORDERED: NORCO-5 PO ONE (16:35)
[2018-10-07] MEDS: ARICEPT PO SCH (20:32)
[2018-10-08] MEDS: ULTRAM PO PRN ×4 (01:46→20:59)
[2018-10-08] MEDS: DUONEB (A & A) INH SCH ×6 (04:07→23:18)
[2018-10-08] MEDS: ZOSYN 2.25 GM in NS 50 ML IV SCH ×4 (04:14→21:09)
[2018-10-08 05:17] LABS: ALLEN TEST YES; BE -1.8 mmoll (-3.0-3.0); BLOOD TYPE ARTERIAL; HCO3-(ACT) 23.4 mmoll (20.0-26.0); METHB 0.8 % (0.0-1.5); O2(CT) 13.7 mL/dL (15.0-23.0); O2HB 90.1 % (95.0-99.0); PCO2(98.6) 39 mmHg (35-45); PO2(98.6) 58 mmHg (60-100); SAMPLE BLOOD; SAO2 92.4 % (95.0-100.0); THB 10.8 g/dL (11.5-17.4); pH(98.6) 7.38 (7.35-7.45)
[2018-10-08 05:19] LABS: MODALITY CANNULA
[2018-10-08] MEDS: HUMULIN R SUBQ SCH ×4 (06:23→21:09)
[2018-10-08] MEDS ORDERED: CALMOSEPTINE OINTMENT TOP PRN (07:51)
[2018-10-08] MEDS: CYMBALTA PO SCH (08:10)
[2018-10-08] MEDS: APRESOLINE PO SCH ×3 (08:10→23:44)
[2018-10-08] MEDS: INDERAL LA PO SCH (08:10)
[2018-10-08] MEDS: NAMENDA PO SCH ×2 (08:10→20:59)
[2018-10-08] MEDS: NORVASC PO SCH (08:10)
[2018-10-08] MEDS: COLACE PO SCH ×2 (08:10→20:58)
[2018-10-08 08:16] LABS: BASO# 0.03 X1000 (0.0-0.2); BASO% 0.2 % (0.0-0.8); EOS% 1.6 % (0.0-10.0); HEMATOCRIT 35.4 % (37.0-47.0); HEMOGLOBIN 11.3 g/dL (12.0-16.0); IMM GRAN# 0.18 X1000 (0.0-0.04); IMM GRAN% 1.5 % (0.0-0.5); LYMPH# 1.22 X1000 (1.2-3.4); LYMPH% 10.1 % (20.5-51.1); MCH 30.1 PG (27-31); MCHC 31.9 g/dL (33-37); MCV 94.4 FL (81-99); MONO# 0.86 X1000 (0.11-0.59); MONO% 7.1 % (1.7-9.3); MPV 10.6 FL (7.4-10.4); NEUT# 9.64 X1000 (1.4-6.5); NEUT% 79.5 % (42.2-75.2); PLT 236 X1000 (130-400); RBC 3.75 XMIL (4.2-5.4); WBC 12.13 X1000 (4.8-10.8)
[2018-10-08] MEDS: ZYLOPRIM PO SCH (08:18)
[2018-10-08] MEDS: ISMO PO SCH (08:18)
[2018-10-08] MEDS: FOLIC ACID PO SCH (08:18)
[2018-10-08 08:39] LABS: ALB/GLOB RATIO 0.7; ALBUMIN 2.7 g/dL (3.5-5.0); CALCIUM 9.8 mg/dL (8.8-10.2); CREATININE 2.3 mg/dL (0.5-0.9); TOTAL BILIRUBIN 0.42 mg/dL (0.20-1.00); TOTAL PROTEIN 6.6 g/dL (6.3-8.3)
[2018-10-08 08:54] LABS: POTASSIUM 2.5 mmol/L (3.5-5.1)
[2018-10-08] MEDS: KLOR-CON PO SCH ×2 (10:21→20:59)
[2018-10-08] MEDS: PROTONIX IV SCH ×2 (10:22→20:59)
[2018-10-08] MEDS: SODIUM CHLORIDE 0.9% INJ SCH (10:22)
--- NOTE | 2018-10-08 11:33 | PROGRESS NOTE ---
DATE: 10/08/2018 SUBJECTIVE: Patient is definitely more awake and oriented today. She is still complaining of pain, but I will continue with the same management. I will try to avoid as much we can narcotics. She is still DNR level 1. We will continue with the same management. OBJECTIVE: Vital Signs: Temperature 97.5 degrees, pulse 107, respiratory rate 15, blood pressure 186/89, oxygen saturation 92% percent on 3 L of nasal cannula. HEENT: Head normocephalic. No trauma. PERRLA. Neck: Supple. No JVD. No masses. Central trachea. Chest: Decreased breath sounds globally with some crackles and rhonchi at the bases. Abdomen: Soft, nontender, nondistended. No hepatosplenomegaly. Extremities: Trace edema. No clubbing. No cyanosis. Chronic venous stasis changes. Neurological examination: The patient is awake, alert. She is oriented x2. She is able to recognize family members at the bedside. She is following commands. She is answering most of my questions. LABORATORY: WBC 12.1, hemoglobin 11.3, hematocrit 35.4, platelets 236. Sodium 143, potassium 2.5, chloride 104, bicarbonate 25. BUN 50, creatinine 2.3, glucose 152, calcium 9.8. ProBNP 9343, albumin 2.7. ASSESSMENT AND PLAN: 1. Encephalopathy. She is definitely much better today compared with the previous days. I do believe she has been having the same problems on previous admissions. In light of her possible opiate overdose/abuse, probably this is related to a toxic encephalopathy secondary to narcotics. I have discussed with the patient and the who is at the bedside, and I do believe she has been taking too much Dustin daily. She has been getting the treatment 3 times a day. For now, I will keep her on tramadol and I will monitor. 2. Acute on chronic kidney disease getting better. Continue with the same management. Nephrology on board. 3. Hypertension. I have increased the dose of hydralazine, and I put this patient back on isosorbide mononitrate, but the blood pressure is still uncontrolled. 4. Type 2 diabetes. Continue with same management. 5. Hypercapnic respiratory failure. This patient also has bilateral lower lobe pneumonia, which actually could be related to aspiration pneumonia. She has been placed on Zosyn and levofloxacin. Continue with the same management. 6. Likely diastolic heart failure. This patient has some pulmonary edema. At home, she is on Lasix and she has been getting Lasix during this hospitalization. Basic metabolic panel was elevated at 11,000 and now is around 9000. 7. History of chronic obstructive pulmonary disease, not in exacerbation. 8. Chronic pain on narcotic therapy. Like I mentioned before, I think this is a cause of her problems. I do believe she is taking too much pain medication. 9. History of myelodysplastic syndrome. Aware. 10. Resuscitation status: Patient is do not resuscitate level 1. 11. Hypertension, which is uncontrolled. I added isosorbide mononitrate and I increased the dose of hydralazine. 12. Chronic atrial fibrillation. Rate controlled. Continue with the medications and anticoagulation. cc: Jacinto Maguire MD
[2018-10-08] MEDS: LEVAQUIN 750 MG/D5W 750 MG/150 ML IVPB IV SCH (14:40)
--- NOTE | 2018-10-08 14:47 | NEPHROLOGY PROGRESS NOTE ---
DATE: 10/08/2018 DATE AND TIME: Date seen 10/08/2018, time seen 0638. SUBJECTIVE: Ms. Lo is resting quietly in bed. Her head of the bed is elevated. She has no complaints. States her head does hurt on occasions with movement. OBJECTIVE: Vital Signs: Her most recent vital signs: Her last temperature 97.3, blood pressure 186/89, heart rate 93, respirations are 18. She is on 3 L nasal cannula. Last recorded saturation 93%. She has had 830 in, she has had 3900 out to Hamilton catheter. LABS: Sodium is 143, potassium is 2.5, chloride is 104, CO2 25, BUN 50, creatinine 2.3, glucose 152. She has an anion gap of 14. Her calcium is 9.8, albumin of 2.7. Her BNP is 9343. Her white count 12.13, hemoglobin 11.3, hematocrit 35.4, with a platelet count of 236,000. ABGs this a.m.: pH 7.38, CO2 39, PO2 58, bicarb 23.4. This is on 2 L nasal cannula. PHYSICAL EXAMINATION: General: This is a 78-year-old white female resting quietly in bed. Head of the bed is slightly elevated. She is in no acute distress. Skin: Warm and dry. HEENT: Normocephalic, atraumatic. Conjunctiva is pale pink. She has JOANNE. Mucous membranes dry. Neck: Supple. Trachea midline. No JVD. Cardiovascular: She is regular rate and rhythm with distant heart sounds. No murmur or gallop appreciated. Lungs: Clear to auscultation bilaterally, though she does have coarse breath sounds when speaking. She remains on home O2. She is on O2 at this time. Abdomen: Large, distended. Positive bowel sounds. Genitourinary: Not inspected. Hamilton catheter is in place. Extremities: Have 1+ lower extremity edema. Integumentary presents with bruising to the right upper and lower extremities. She also has complaints of some right foot discomfort, more slightly swollen than the left. Neurologic: Alert and oriented x 3. ASSESSMENT AND PLAN: 1. Acute on chronic kidney disease stage 4. Adequate urine output. No indications for intervention. Again, her FENa score had been low. She does have pulmonary edema. It has been suggested that she have conservative care regarding her renal disease. 2. Toxic metabolic encephalopathy. The patient is much improved today. 3. Electrolytes, acid-base balance and anemia. These all remain fairly stable. Followed by the primary care. 4. Chronic atrial fibrillation, followed by Cardiology. I would like to thank you for allowing us to follow with this patient. Dictated by STARLA Agee for Jack Woods MD Face to face encounter, data reviewed, discussed with Abbi Comer on 10/08/18. I agree with the above assessment and plan of care. cc: STARLA Agee MD [facility]
[2018-10-08] MEDS ORDERED: NORCO-5 PO ONE (16:55)
[2018-10-08] MEDS: ARICEPT PO SCH (20:59)
[2018-10-09] MEDS: DUONEB (A & A) INH SCH ×7 (03:45→23:26)
[2018-10-09] MEDS: ZOSYN 2.25 GM in NS 50 ML IV SCH ×4 (03:47→21:44)
[2018-10-09 05:09] LABS: ALLEN TEST YES; BLOOD TYPE ARTERIAL; HCO3-(ACT) 23.3 mmoll (20.0-26.0); METHB 1.4 % (0.0-1.5); O2(CT) 15.1 mL/dL (15.0-23.0); O2HB 92.4 % (95.0-99.0); PCO2(98.6) 40 mmHg (35-45); PO2(98.6) 73 mmHg (60-100); SAMPLE BLOOD; SAO2 94.7 % (95.0-100.0); THB 11.6 g/dL (11.5-17.4); pH(98.6) 7.37 (7.35-7.45)
[2018-10-09 05:11] LABS: MODALITY CANNULA
[2018-10-09] MEDS: HUMULIN R SUBQ SCH ×4 (06:06→20:49)
--- NOTE | 2018-10-09 07:17 | Diag Imaging Result Doc PS360 ---
EXAM: CHEST-PORTABLE 10/09/2018 HISTORY: dyspnea TECHNIQUE: AP portable at 0547 COMMENT: There is alveolar opacity in both lower lobes. The heart size is enlarged. Compared to 10/06/2018 there is slight worsening in the basilar opacities. IMPRESSION: Worsened pulmonary edema plus minus pneumonia. Electronically signed by Luis Bhatia 10/09/2018 7:14 AM
[2018-10-09 07:24] LABS: BASO# 0.02 X1000 (0.0-0.2); BASO% 0.2 % (0.0-0.8); EOS# 0.15 X1000 (0.0-0.7); EOS% 1.2 % (0.0-10.0); HEMATOCRIT 32.8 % (37.0-47.0); HEMOGLOBIN 10.7 g/dL (12.0-16.0); IMM GRAN# 0.14 X1000 (0.0-0.04); IMM GRAN% 1.1 % (0.0-0.5); LYMPH# 1.29 X1000 (1.2-3.4); LYMPH% 10.1 % (20.5-51.1); MCHC 32.6 g/dL (33-37); MCV 95.1 FL (81-99); MONO% 6.3 % (1.7-9.3); MPV 10.6 FL (7.4-10.4); NEUT# 10.35 X1000 (1.4-6.5); NEUT% 81.1 % (42.2-75.2); PLT 216 X1000 (130-400); RBC 3.45 XMIL (4.2-5.4); RDW 14.9 % (11.5-14.5); WBC 12.75 X1000 (4.8-10.8)
[2018-10-09 07:52] LABS: ALB/GLOB RATIO 0.8; ALBUMIN 2.8 g/dL (3.5-5.0); CALCIUM 9.3 mg/dL (8.8-10.2); CREATININE 2.2 mg/dL (0.5-0.9); POTASSIUM 2.9 mmol/L (3.5-5.1); TOTAL BILIRUBIN 0.4 mg/dL (0.20-1.00); TOTAL PROTEIN 6.5 g/dL (6.3-8.3)
[2018-10-09] MEDS ORDERED: LASIX IV ONE (08:27)
[2018-10-09] MEDS: NAMENDA PO SCH ×2 (08:56→20:31)
[2018-10-09] MEDS: CYMBALTA PO SCH (08:56)
[2018-10-09] MEDS: ISMO PO SCH (08:56)
[2018-10-09] MEDS: FOLIC ACID PO SCH (08:56)
[2018-10-09] MEDS: COLACE PO SCH ×2 (08:56→20:31)
[2018-10-09] MEDS: ULTRAM PO PRN ×2 (08:56→20:31)
[2018-10-09] MEDS: NORVASC PO SCH (08:57)
[2018-10-09] MEDS: ZYLOPRIM PO SCH (08:57)
[2018-10-09] MEDS: INDERAL LA PO SCH (08:57)
[2018-10-09] MEDS: KLOR-CON PO SCH ×2 (09:03→20:31)
[2018-10-09] MEDS: PROTONIX IV SCH ×2 (09:11→21:44)
[2018-10-09] MEDS: SODIUM CHLORIDE 0.9% INJ SCH ×2 (09:12→20:36)
[2018-10-09] MEDS: APRESOLINE PO SCH ×2 (09:18→17:04)
[2018-10-09] MEDS: BAZA ANTIFUNGAL CREAM TOP SCH ×2 (09:42→20:49)
[2018-10-09] MEDS: PHENERGAN IV PRN ×2 (12:48→20:32)
--- NOTE | 2018-10-09 12:49 | NEPHROLOGY PROGRESS NOTE ---
DATE: 10/09/2018 SUBJECTIVE: She is smiling and denies new symptoms. She states she feels better. Still coughing with sputum production. OBJECTIVE: Vital Signs: Blood pressure 158/75, heart rate 92, respiration 18, afebrile. Intake 400 mL. Output 1.8 L. General: Chronically ill-appearing woman in no distress. Skin: Warm and dry, thin with multiple ecchymoses. HEENT: Conjunctivae are pink. Oropharynx is dry. Neck: Neck veins are not visible. Heart: Regular. Lungs: Equal with a few scattered crackles and rhonchi. Abdomen: Soft nontender, obese. Bowel sounds present. Extremities: 1+ edema. No clubbing or cyanosis. IMPRESSION: Acute kidney injury overlying chronic kidney disease. Her baseline creatinine is approximately 2 and she is approaching at baseline. Good urine output. She does have significant hypokalemia. This has been addressed by the primary team. cc: Jack Woods MD
--- NOTE | 2018-10-09 16:18 | PROGRESS NOTE ---
DATE: 10/09/2018 SUBJECTIVE: This patient is awake and she is oriented, she seems a little bit more slow compared with yesterday, family member at the bedside, we will try to avoid as much as we can narcotics. She is DNR level 1. She is complaining of nausea. She has been getting nausea treatment but as per the patient, Phenergan is the only medication that works. OBJECTIVE: Vital Signs: Temperature 98.1 degrees, pulse 78, respiratory rate 18, blood pressure 155/88, oxygen saturation 100% on 2 L of nasal cannula. HEENT: Head normocephalic. No trauma. PERRLA. Neck: Supple. No JVD. No masses. Central trachea. Chest: Decreased breath sounds globally with some crackles and rhonchi at the bases. Abdomen: Soft, nontender, nondistended. No hepatosplenomegaly. Extremities: No edema, no clubbing, no cyanosis. Chronic venous stasis changes at the lower extremities. Neurological: This patient is more awake. She is following commands. She is oriented x2. She is able to recognize her family member at the bedside. She is answering most of my questions. LABORATORY: WBC 12.7, hemoglobin 10.7, hematocrit 32.8, platelets 216,000, sodium 142, potassium 2.9, chloride 104, bicarbonate 22, BUN 47, creatinine 2.2, glucose 155, calcium 9.3, magnesium 1.7. AST 15, ALT 10, alkaline phosphatase 106, albumin 2.8. ASSESSMENT AND PLAN: 1. Encephalopathy. She is much better compared with admission. I do believe she has been having some problems. She has been having the same problem on previous admission. In light of her possible opiate overdose/abuse probably this is related to a toxic encephalopathy secondary to narcotics, I have discussed the case with the patient and the who is at the bedside. I do believe she has been taking too much pain medication on a daily basis, 3 times a day. 2. Acute on chronic kidney disease, this is getting better close to her baseline. Continue to monitor. 3. Nausea, no vomiting. Continue with the same treatment. 4. Hypertension. Blood pressure is a little bit better controlled. Will continue to monitor, the dose of hydralazine has been increased already and I put this patient back on most of her medications. 5. Type 2 diabetes. Continue with same management. 6. Hypercapnic respiratory failure, this patient also has bilateral lower lobe pneumonia which actually could be related to aspiration pneumonia. She has been placed on Zosyn and levofloxacin. Continue with same management. She is getting better. 7. Likely diastolic heart failure. This patient has also some pulmonary edema. I have stopped the fluids and I will give her a dose of Lasix. 8. History of chronic obstructive pulmonary disease, not in exacerbation. 9. Chronic pain on narcotic therapy, like I mentioned before I think this is the cause of her problems. I do believe she is taking too much pain medication. Continue with tramadol as needed. 10. History of myelodysplastic syndrome, aware. 11. Resuscitation status, patient is do not resuscitate level 1. 12. Chronic atrial fibrillation, rate controlled. Continue with the same medications and anticoagulation. cc: Jacinto Maguire MD
[2018-10-09] MEDS: LEVAQUIN 750 MG/D5W 750 MG/150 ML IVPB IV SCH (17:01)
[2018-10-09] MEDS: ARICEPT PO SCH (20:31)
[2018-10-09] MEDS: SODIUM CHLORIDE 0.9% INJ PRN (20:36)
--- NOTE | 2018-10-09 23:58 | PULMONOLOGY PROGRESS NOTE ---
DATE: 10/09/2018 SUBJECTIVE: The patient is awake and alert. She has delayed responses. It is not clear if she is oriented. She has no increased work of breathing. She has limited appetite. She has had some nausea this afternoon. OBJECTIVE: Vital Signs: Blood pressure 151/73, heart rate 80, respiratory rate 18, oxygen saturation 100% on 2 L per nasal cannula. HEENT: Pupils are equal. Oropharynx appears clear. Neck: Is supple. Chest: Reveals kyphosis with decreased breath sounds and crackles in both lung bases. Cardiac: S1-S2. Abdomen: Soft. Extremities: Reveal trace edema. IMPRESSION: 1. A 78-year-old with aspiration pneumonia. 2. Pleural effusions with diastolic heart failure. 3. Acute hypoxemic respiratory failure. 4. Encephalopathy. 5. Acute on chronic kidney disease. 6. Myelodysplastic syndrome. 7. Atrial fibrillation. DISCUSSION: By reading the chart, she appears to have some clinical improvement. RECOMMENDATIONS: 1. Reflux precautions with nausea given her aspiration pneumonia. 2. Continue oxygen for hypoxemic respiratory failure. 3. Continue antibiotic regimen. 4. Continue bronchial hygiene. 5. The patient's overall status is guarded. End of life discussions have been addressed. cc: Vic Holguin MD
[2018-10-10] MEDS: PHENERGAN IV PRN (00:38)
[2018-10-10] MEDS: SODIUM CHLORIDE 0.9% INJ PRN (00:38)
[2018-10-10] MEDS: APRESOLINE PO SCH ×3 (00:38→15:22)
[2018-10-10] MEDS: DUONEB (A & A) INH SCH ×6 (03:55→22:33)
[2018-10-10] MEDS: ZOSYN 2.25 GM in NS 50 ML IV SCH ×3 (04:10→18:47)
[2018-10-10] MEDS: HUMULIN R SUBQ SCH ×4 (06:16→21:08)
[2018-10-10 07:29] LABS: BASO# 0.02 X1000 (0.0-0.2); BASO% 0.2 % (0.0-0.8); EOS# 0.28 X1000 (0.0-0.7); EOS% 2.2 % (0.0-10.0); HEMATOCRIT 35.1 % (37.0-47.0); HEMOGLOBIN 11.3 g/dL (12.0-16.0); IMM GRAN# 0.13 X1000 (0.0-0.04); LYMPH# 1.58 X1000 (1.2-3.4); LYMPH% 12.4 % (20.5-51.1); MCH 30.6 PG (27-31); MCHC 32.2 g/dL (33-37); MCV 95.1 FL (81-99); MONO# 1.05 X1000 (0.11-0.59); MONO% 8.2 % (1.7-9.3); MPV 10.5 FL (7.4-10.4); NEUT# 9.67 X1000 (1.4-6.5); PLT 222 X1000 (130-400); RBC 3.69 XMIL (4.2-5.4); RDW 14.9 % (11.5-14.5); WBC 12.73 X1000 (4.8-10.8)
[2018-10-10 08:03] LABS: ALB/GLOB RATIO 0.8; CALCIUM 9.6 mg/dL (8.8-10.2); CREATININE 2.3 mg/dL (0.5-0.9); POTASSIUM 3.4 mmol/L (3.5-5.1); TOTAL BILIRUBIN 0.57 mg/dL (0.20-1.00); TOTAL PROTEIN 6.6 g/dL (6.3-8.3)
[2018-10-10] MEDS ORDERED: KLOR-CON PO ONE (09:43)
[2018-10-10] MEDS: ISMO PO SCH (10:10)
[2018-10-10] MEDS: INDERAL LA PO SCH (10:10)
[2018-10-10] MEDS: CYMBALTA PO SCH (10:11)
[2018-10-10] MEDS: BAZA ANTIFUNGAL CREAM TOP SCH (10:11)
[2018-10-10] MEDS: COLACE PO SCH ×2 (10:11→21:12)
[2018-10-10] MEDS: PROTONIX IV SCH ×2 (10:11→21:16)
[2018-10-10] MEDS: ZYLOPRIM PO SCH (10:11)
[2018-10-10] MEDS: NAMENDA PO SCH ×2 (10:11→21:12)
[2018-10-10] MEDS: NORVASC PO SCH (10:11)
[2018-10-10] MEDS: FOLIC ACID PO SCH (10:19)
[2018-10-10] MEDS: LEVAQUIN 750 MG/D5W 750 MG/150 ML IVPB IV SCH (15:22)
[2018-10-10] MEDS: ULTRAM PO PRN ×2 (15:28→21:26)
--- NOTE | 2018-10-10 17:29 | PROGRESS NOTE ---
DATE: 10/10/2018 SUBJECTIVE: No changes compared with yesterday. Continue with the same management. Likely, this patient will need to go to a rehab center. OBJECTIVE: Vital Signs: Temperature 98.2 degrees, pulse 91, respiratory rate 18, blood pressure 161/97, oxygen saturation 96 on 3 L of nasal cannula. HEENT: Head normocephalic. No trauma. PERRLA. Neck: Supple. No JVD. No masses. Central trachea. Chest: Decreased breath sounds globally, with some crackles and rhonchi at the bases. Abdomen: Soft, nontender, nondistended. No hepatosplenomegaly. Extremities: No edema. No clubbing. No cyanosis. Chronic venous stasis changes at the level of the lower extremities. Neurological: The patient is more awake. She is following commands. She is oriented x2. She is able to recognize family members at the bedside. She is answering most of my questions. LABORATORY STUDIES: WBC 12.7, hemoglobin 11.3, hematocrit 35.1, platelets 222,000. Sodium 143, potassium 3.4, chloride 104, bicarbonate 23, BUN 47, creatinine 2.3, glucose 151, calcium 9.6, albumin 3. ASSESSMENT AND PLAN: 1. Encephalopathy, resolved. This is her baseline. Likely, related to opiate overdose/abuse. 2. [id number] kidney disease. I think this is her baseline. We will continue to monitor. 3. Nausea, but no vomiting, resolved. 4. Hypertension. Blood pressure is still high. We will continue with amlodipine, hydralazine, and I will continue also with propranolol. She is also on isosorbide mononitrate. 5. Type 2 diabetes. Continue with same management. 6. Hypercapnic respiratory failure, resolved. 7. Bilateral lower lobe pneumonia, likely secondary to aspiration pneumonia. Continue with the same management. It is better. 8. Diastolic heart failure and pulmonary hypertension, aware. At home, she was on Lasix, which I will resume today. She has been getting Lasix IV during this hospitalization, on-and-off. 9. History of chronic obstructive pulmonary disease, not in exacerbation. 10. Chronic pain, on narcotic therapy. Like I mentioned before, likely this is the main problem, probably the encephalopathy and they aspiration pneumonia was secondary to narcotic use. 11. History of myelodysplastic syndrome, aware. 12. Resuscitation status: This patient is DNR level 1. 13. Chronic atrial fibrillation, rate-controlled. Continue with the same medications and anticoagulation. 14. Likely, this patient will be discharged next Friday to a rehab center. cc: Jacinto Maguire MD
[2018-10-10] MEDS: ARICEPT PO SCH (21:11)
[2018-10-11] MEDS: APRESOLINE PO SCH ×3 (01:35→16:44)
[2018-10-11] MEDS: ZOSYN 2.25 GM in NS 50 ML IV SCH ×4 (01:35→19:55)
[2018-10-11] MEDS: BAZA ANTIFUNGAL CREAM TOP SCH ×2 (01:36→09:51)
[2018-10-11] MEDS: DUONEB (A & A) INH SCH ×6 (05:13→23:20)
[2018-10-11] MEDS: HUMULIN R SUBQ SCH ×3 (06:05→16:47)
[2018-10-11 07:43] LABS: BASO# 0.03 X1000 (0.0-0.2); BASO% 0.2 % (0.0-0.8); EOS# 0.24 X1000 (0.0-0.7); EOS% 1.9 % (0.0-10.0); HEMATOCRIT 35.3 % (37.0-47.0); HEMOGLOBIN 11.2 g/dL (12.0-16.0); IMM GRAN# 0.13 X1000 (0.0-0.04); LYMPH# 1.86 X1000 (1.2-3.4); LYMPH% 14.3 % (20.5-51.1); MCH 30.5 PG (27-31); MCHC 31.7 g/dL (33-37); MCV 96.2 FL (81-99); MONO# 1.15 X1000 (0.11-0.59); MONO% 8.9 % (1.7-9.3); MPV 10.7 FL (7.4-10.4); NEUT# 9.56 X1000 (1.4-6.5); NEUT% 73.7 % (42.2-75.2); PLT 203 X1000 (130-400); RBC 3.67 XMIL (4.2-5.4); RDW 14.9 % (11.5-14.5); WBC 12.97 X1000 (4.8-10.8)
[2018-10-11 07:59] LABS: CALCIUM 9.5 mg/dL (8.8-10.2); CREATININE 2.3 mg/dL (0.5-0.9); POTASSIUM 3.3 mmol/L (3.5-5.1)
[2018-10-11] MEDS: ISMO PO SCH (09:49)
[2018-10-11] MEDS: NORVASC PO SCH (09:50)
[2018-10-11] MEDS: PROTONIX IV SCH ×2 (09:50→20:00)
[2018-10-11] MEDS: LASIX PO SCH (09:50)
[2018-10-11] MEDS: SODIUM CHLORIDE 0.9% INJ SCH (09:50)
[2018-10-11] MEDS: INDERAL LA PO SCH (09:50)
[2018-10-11] MEDS: CYMBALTA PO SCH (09:50)
[2018-10-11] MEDS: FOLIC ACID PO SCH (09:50)
[2018-10-11] MEDS: NAMENDA PO SCH ×2 (09:50→19:59)
[2018-10-11] MEDS: COLACE PO SCH ×2 (09:50→19:59)
[2018-10-11] MEDS: ZYLOPRIM PO SCH (09:50)
[2018-10-11] MEDS ORDERED: KLOR-CON PO ONE (10:44)
--- NOTE | 2018-10-11 11:06 | PROGRESS NOTE ---
DATE: 10/11/2018 SUBJECTIVE: No acute events overnight. No big changes compared with yesterday. Discussion about rehab center has been done; they will think about it. OBJECTIVE: Vital Signs: Temperature 97.6 degrees, pulse 70, respiratory rate 13, blood pressure 175/79, oxygen saturation 97% on 3 L of nasal cannula. HEENT: Head normocephalic. No trauma. PERRLA. Neck: Supple. No JVD. No masses. Central trachea. Chest: Decreased breath sounds globally with some crackles and rhonchi at the bases. Abdomen: Soft, nontender, nondistended. No hepatosplenomegaly. Extremities: No edema. No clubbing. No cyanosis. Chronic venous stasis changes at the level of the lower extremities. Neurological examination: The patient is awake. She is following commands. She is answering my questions. Oriented x2. She is able to recognize the family members at the bedside. LABORATORY: WBC 12.9, hemoglobin 11.2, hematocrit 35.3, platelets 203. Sodium 139, potassium 3.3, chloride 104, bicarbonate 21. BUN 45, creatinine 2.3, glucose 137, calcium 9.5. ASSESSMENT AND PLAN: 1. Encephalopathy, resolved. Likely this is her baseline as per the . 2. Acute on chronic kidney disease, resolved. This is her baseline. 3. Nausea, but no vomiting. Resolved. 4. Hypertension. Blood pressure is still high. I will increase the dose of the hydralazine. 5. Type 2 diabetes. Continue with the same management. 6. Hypercapnic respiratory failure, resolved. 7. Bilateral lower lobe pneumonia likely secondary to aspiration pneumonia. Continue with the same management. This is getting better. 8. Diastolic heart failure and pulmonary hypertension, aware. Continue with Lasix. 9. History of chronic obstructive pulmonary disease, not in exacerbation. 10. Hypokalemia. I will replace the potassium. 11. Chronic pain on narcotic therapy. Likely this is the main problem that caused encephalopathy and aspiration pneumonia. At this moment, I am holding this medication. 12. History of myelodysplastic syndrome. Aware. 13. Resuscitation status: This patient is DNR level 1. 14. Chronic atrial fibrillation, rate controlled. Continue with same medications and anticoagulation. Overall, this patient is doing much better. Her prognosis is guarded due to her age and comorbidities. Likely this patient needs to go to a rehab center. cc: Jacitno Maguire MD
[2018-10-11] MEDS: ULTRAM PO PRN ×2 (12:11→19:56)
[2018-10-11] MEDS ORDERED: TYLENOL PO PRN (16:30)
[2018-10-11] MEDS: LEVAQUIN 750 MG/D5W 750 MG/150 ML IVPB IV SCH (16:44)
--- NOTE | 2018-10-11 19:14 | PULMONOLOGY PROGRESS NOTE ---
DATE: 10/11/2018 SUBJECTIVE: The patient reports they are not giving her enough pain medicine. She will discuss this with Dr. Mancia. She is without other complaints . OBJECTIVE: The patient has been afebrile for the last 24 hours. Blood pressure 149/76, heart rate 81, respiratory rate 18, O2 saturation 97% on 3 L per nasal cannula.HEENT: Pupils are equal and reactive. Oropharynx is clear. Neck: Is supple. Chest: Reveals diminished breath sounds both lung bases. Cardiac: S1, S2 . Abdomen: Soft without hepatosplenomegaly . Extremities: Reveal trace to 1+ pretibial edema. LABORATORIES: White blood count 12.97, hemoglobin 11.2, platelet count 203,000, sodium 139, potassium 3.3, chloride 104, bicarbonate 21, BUN 45, creatinine 2.3 . IMPRESSION: 78-year-old with 1. Aspiration pneumonia . 2. Pleural effusion and diastolic heart failure. 3. Acute hypoxemic respiratory failure . 4. Encephalopathy which is resolving. 5. Acute on chronic kidney disease. 6. Myelodysplastic syndrome . 7. Atrial fibrillation . RECOMMENDATIONS: 1. Continue reflux precautions given aspiration pneumonia. 2. Continue oxygen for hypoxemic respiratory failure. 3. Continue antibiotic regimen. 4. Continue bronchial hygiene. 5. Anticipate discharge to a rehab facility. cc: Vic Holguin MD
[2018-10-11] MEDS: ARICEPT PO SCH (19:59)
[2018-10-12] MEDS: HUMULIN R SUBQ SCH ×3 (00:56→11:53)
[2018-10-12] MEDS: PROTONIX IV SCH ×2 (00:56→11:40)
[2018-10-12] MEDS: ZOSYN 2.25 GM in NS 50 ML IV SCH ×3 (01:20→14:35)
[2018-10-12] MEDS: BAZA ANTIFUNGAL CREAM TOP SCH (01:21)
[2018-10-12] MEDS: APRESOLINE PO SCH ×2 (01:21→09:17)
[2018-10-12] MEDS: ULTRAM PO PRN ×2 (02:55→11:37)
[2018-10-12] MEDS: DUONEB (A & A) INH SCH ×3 (04:07→12:09)
--- NOTE | 2018-10-12 07:13 | Diag Imaging Result Doc PS360 ---
EXAM: CHEST-PORTABLE 10/12/2018 HISTORY: abnormal exam TECHNIQUE: AP portable at 0538 COMMENT: Compared to the previous study of 10/09/2018 the lung bases are clear. The left hemidiaphragm is now visible in portions of the right hemidiaphragm are now visible. IMPRESSION: Improved pulmonary edema and/or pneumonia. Electronically signed by Luis Bhatia 10/12/2018 7:10 AM
[2018-10-12 07:46] LABS: CALCIUM 9.6 mg/dL (8.8-10.2); CREATININE 2.3 mg/dL (0.5-0.9); MAGNESIUM 1.9 mg/dL (1.5-2.7); POTASSIUM 3.4 mmol/L (3.5-5.1)
[2018-10-12 08:25] LABS: BASO# 0.02 X1000 (0.0-0.2); BASO% 0.2 % (0.0-0.8); EOS# 0.34 X1000 (0.0-0.7); EOS% 2.9 % (0.0-10.0); HEMATOCRIT 35.5 % (37.0-47.0); HEMOGLOBIN 11.1 g/dL (12.0-16.0); IMM GRAN# 0.12 X1000 (0.0-0.04); LYMPH# 1.67 X1000 (1.2-3.4); LYMPH% 14.2 % (20.5-51.1); MCHC 31.3 g/dL (33-37); MCV 95.9 FL (81-99); MONO# 0.95 X1000 (0.11-0.59); MONO% 8.1 % (1.7-9.3); MPV 11.2 FL (7.4-10.4); NEUT# 8.64 X1000 (1.4-6.5); NEUT% 73.6 % (42.2-75.2); PLT 218 X1000 (130-400); RDW 14.8 % (11.5-14.5); WBC 11.74 X1000 (4.8-10.8)
[2018-10-12] MEDS ORDERED: KLOR-CON PO ONE (09:11)
[2018-10-12] MEDS: INDERAL LA PO SCH (09:15)
[2018-10-12] MEDS: ISMO PO SCH (09:15)
[2018-10-12] MEDS: FOLIC ACID PO SCH (09:15)
[2018-10-12] MEDS: COLACE PO SCH (09:16)
[2018-10-12] MEDS: NAMENDA PO SCH (09:16)
[2018-10-12] MEDS: LASIX PO SCH (09:17)
[2018-10-12] MEDS: CYMBALTA PO SCH (09:17)
[2018-10-12] MEDS: NORVASC PO SCH (09:17)
[2018-10-12] MEDS: ZYLOPRIM PO SCH (09:17)
[2018-10-12] MEDS ORDERED: NORCO-5 PO PRN (11:12)
--- NOTE | 2018-10-12 13:04 | DISCHARGE SUMMARY ---
ADMISSION DATE: 10/06/2018 DISCHARGE DATE: 10/12/2018 CONSULTATIONS: 1. Jack Woods MD with Nephrology. 2. Monster Gregorio MD with Pulmonology. PERTINENT PROCEDURES: Head CT, negative examination. Chest CT, severely low lung volumes, cardiomegaly, vascular disease, bilateral lower lobe consolidation, left greater than right, small right and trace left pleural effusions. DISCHARGE DIAGNOSES: 1. Encephalopathy, resolved. The patient is likely at her baseline per . 2. Acute on chronic kidney disease, resolved. Patient is back at her baseline. 3. Nausea, resolved. 4. Hypertension. We have increased her dose of hydralazine. 5. Type 2 diabetes. Continue with home regimen. 6. Hypercapnic respiratory failure, resolved. 7. Bilateral lower lobe pneumonia secondary to aspiration pneumonia. She will continue on Levaquin for 3 more doses. 8. Diastolic heart failure, pulmonary hypertension, aware. Continue with Lasix. 9. History of chronic obstructive pulmonary disease without exacerbation. 10. Hypokalemia, resolved. 11. Chronic pain on narcotic therapy. I think that this may have contributed to some of her encephalopathy as well as aspiration pneumonia. Her narcotics have been held. 12. History of myelodysplastic syndrome, aware. 13. Resuscitation. Status Do Not Resuscitate, level 1. 14. Chronic atrial fibrillation, rate controlled. Continue current medications with anticoagulation. HOSPITAL COURSE: Briefly, Ms. Lo is a 78-year-old female with multiple medical issues. She has been admitted to our service multiple times over the years. Upon admission, she was somnolent and unable to really give any type of history. On examination, she was encephalopathic. Per her report, she came to the ER because she was on the floor for too long. However, it was unknown timing and duration. There was no one at the bedside to collaborate. Her workup in the ED revealed a white count of 20 with anemia. An ABG revealed mixed metabolic and respiratory acidosis and her chemistry showed worsening renal function with a proBNP of 11,000. Chest x-ray showed cardiomegaly. She was initiated on Lasix, given an ampule of bicarb and started on IV antibiotics. She was followed by Pulmonology as well as Nephrology. She has been placed on reflux precautions for her nausea as well as aspiration precautions. Over the course of her hospital stay, she has shown some clinical improvement. She is back to her baseline mental status. She will be discharged to follow up for rehab. OBJECTIVE: Vital signs: At time of discharge, temperature is 98.3 degrees axillary, heart rate 71, respirations 15, blood pressure 184/79, O2 is 100% on 3 L nasal cannula. DISCHARGE DIET: Gastrointestinal soft with aspiration precautions. HOME MEDICATIONS: 1. Zocor 40 mg p.o. at bedtime. 2. Zyloprim 300 mg p.o. daily. 3. Norvasc 10 mg p.o. daily. 4. Stool softener 200 mg p.o. b.i.d. 5. Aricept 10 mg p.o. at bedtime. 6. Cymbalta 30 mg p.o. daily. 7. Folic acid 1 mg p.o. daily. 8. Lasix 40 mg p.o. daily. 9. Levemir FlexTouch 15 units subcutaneously b.i.d. 10. Isosorbide mononitrate 60 mg p.o. daily. 11. Prinivil 10 mg p.o. daily. 12. Namenda 10 mg p.o. b.i.d. 13. Reglan 5 mg p.o. 4 times a day. 14. Prilosec 40 mg p.o. daily. 15. Inderal XL 80 mg p.o. daily. 16. DuoNeb 3 mL inhaled q.2 hours p.r.n. 17. Apresoline 50 mg p.o. q.8 hours. 18. Sayre 5, 1 each p.o. b.i.d. p.r.n. pain level greater than 7. 19. Levaquin 750 mg p.o. daily x3 doses. 20. Potassium chloride 20 mEq p.o. daily. 21. Ultram 50 mg p.o. q.6 hours p.r.n. pain level less than 6 FOLLOW-UP: Ms. Lo is being discharged to follow up for rehab where she will continue to work with Physical Therapy. She is to take all medications as prescribed. Follow up with her PCP, Dr. Rosales. She can return to the ED or call 911 for any worsening of symptoms. Discharge time: 35 minutes Dictated by STARLA Lainez for Jacinto Maguire MD cc: MD Chiquis Guadalupe MD Reginald D. Gladish, MD James E. Boyle, MD MTDD
[2018-10-12 13:05] VITALS: BP 158/87
[2018-10-12] MEDS: LEVAQUIN 750 MG/D5W 750 MG/150 ML IVPB IV SCH (14:35)
--- NOTE | 2018-10-12 21:26 | NEPHROLOGY PROGRESS NOTE ---
DATE: 10/12/2018 SUBJECTIVE: Patient resting in bed. She believes she will go home later today. OBJECTIVE: Vital Signs: Temperature 98, pulse 81, respiratory rate 18, blood pressure 184/79. Intake 540 mL, output 1.9 L. General: This is an elderly female, resting in bed. She is awake and alert. She is able to tell me where she is and what is going on. HEENT: Normocephalic, atraumatic. JOANNE. Neck: Supple. No JVD. Cardiovascular: Regular rate and rhythm without murmur. Pulmonary: She is clear bilaterally. Abdomen: Soft, with positive bowel sounds. : Not inspected. Extremities: 1+ edema. No clubbing, cyanosis. Integumentary: Skin is warm and dry. LAB DATA: Sodium 142, potassium 3.4, CO2 of 23, creatinine 2.3. Baseline 2. ASSESSMENT AND PLAN: Acute overlying chronic kidney disease. Renal function remains stable close to historical baseline. She has no indications for intervention otherwise from a renal perspective. We will see her in follow up in 2 weeks. Dictated by STARLA Orozco for Jack Woods MD Face to face encounter, data reviewed, discussed with Se Cid on 10/12/18. I agree with the above assessment and plan of care. cc: Jack Woods MD [facility]
== END 2018-10-12 15:28 | DRG 917 ==
LOC: SUPCPDRO → ED 08:25 → 3N 10:43
PROVIDERS: ATTEND Internal Medicine
CPT/HCPCS: 51702; 70450; 71010; 71045; 71250; 80048; 80053; 80061; 80101; 80196; 80301; 80307; 80320; 80324; 80329; 80345; 80346; 80353; 80358; 80361; 80365; 81001; 82003; 82009; 82055; 82550; 82570; 82607; 82728; 82746; 82805; 82948; 83036; 83540; 83550; 83605; 83721; 83735; 83880; 83935; 83992; 84300; 84439; 84443; 84484; 85025; 85610; 85730; 87040; 87070; 87205; 87275; 87276; 87804; 93005; 93306; 94640; 94660; 94667; 94668; 94761; 94799; 96365; 96367; 96375; 96376; 97110; 97162; 97166; 97530; 99285; 99291; A9270; C8929; C9113; G0431; G0434; G0479; G0480; G6038; G6039; G6040; J0456; J0696; J1940; J1956; J2543; J2550; J7030; Q9957; S0164; XXXXX